=== PATIENT | male | born 1940 | race Caucasian/White ===

== ENCOUNTER 2019-03-27 15:45 | Inpatient (IN) ==
[2019-03-27 16:20] LABS: Basophils # (auto) 0.02 K/uL (0-0.2); Basophils % (auto) 0.2 %; Eosinophils # (auto) 0.23 K/uL (0-0.5); Eosinophils % (auto) 1.9 %; Hematocrit (blood only) 37.2 % (42-52); Hemoglobin 11.9 g/dL (14.0-18.0); Immature Granulocytes # (auto) 0.03 K/uL (0.00-0.02); Immature Granulocytes % (auto) 0.3 %; Lymphocytes # (auto) 2.07 K/uL (1.2-3.4); Lymphocytes % (auto) 17.3 %; Mean Corpuscular Hemoglobin 28.1 pg (25-34); Mean Corpuscular Volume 87.9 fL (80-100); Mean Platelet Volume 11.3 fL (7.4-10.4); Monocytes # (auto) 0.56 K/uL (0.11-0.59); Monocytes % (auto) 4.7 %; Neutrophils # (auto) 9.03 K/uL (1.4-6.5); Neutrophils % (auto) 75.6 %; Platelet Count 162 K/uL (130-400); RDW Coefficient of Variation 15.4 % (11.5-14.5); RDW Standard Deviation 48.6 fL (36.4-46.3); Red Blood Count 4.23 M/uL (4.7-6.1); White Blood Count 11.94 K/uL (4.8-10.8)
[2019-03-27 16:29] LABS: INR 1.6 (0.9-1.1); Prothrombin Time 16.2 Seconds (9.0-12.0)
[2019-03-27 16:38] LABS: Albumin Level 3.3 gm/dl (3.4-5.0); BUN Creatinine Ratio 32.6 (10-20); Calcium 9.1 mg/dl (8.5-10.1); Creatinine Clr Calc Pharmacy 23.9 ml/min; Est GFR (African American) 32.5; Magnesium 2.6 mg/dl (1.8-2.4); Potassium 4.8 mmol/L (3.5-5.1)
--- NOTE | 2019-03-27 16:42 | XRay Report ---
XR chest 1V portable CLINICAL HISTORY: 78 years-old Male presenting with weakness. TECHNIQUE: Portable upright AP view of the chest was obtained. COMPARISON: None. FINDINGS: Atherosclerosis of the aortic arch. Cardiac silhouette borderline enlarged. Mildly coarsened lung [place] may relate to mild vascular prominence No focal opacity. No large effusion or pneumothorax. Oss eous structures normal. Upper abdomen normal. IMPRESSION: 1. No acute cardiopulmonary disease. Electronically signed by: Keith Antunez M.D. 03/27/2019 4:41 PM
[2019-03-27] MEDS ORDERED: FUROSEMIDE 40 MG/4 ML VIAL IV STA (16:47)
--- NOTE | 2019-03-27 16:53 | CT Scan Report ---
CT head/brain wo con CLINICAL HISTORY: 78 years-old Male presenting with confusion. TECHNIQUE: Multidetector CT imaging of the head was performed without the use of intravenous contrast . IV contrast: None. One or more dose lowering techniques were used consistent with the principles of ALARA (as low as reasonably achievable), including automatic exposure control, mA or kV adjustment t o individual patient size, and/or use of iterative reconstruction. COMPARISON: None. CT DOSE (mGy.cm): The estimated cumulative dose is 614.27 mGy.cm. FINDINGS: Perforator Typist topogram: The patient is edentulous. Proportional ventricular and sulcal prominence, somewhat advanced age-related parenchymal volume loss . No hemorrhage. Brain parenchyma normal in appearance with preserved mcfarland-white differentiation. No acute territorial infarct. No mass effect or midline shift. No extra-axial fluid collection. Paranasa l sinuses and mastoid air cells clear. Calvarium intact. Absent [place] lenses. IMPRESSION: 1. No acute intracranial abnormality. Somewhat advanced parenchymal atrophy for the patient's age. Electronically signed by: Keith Antunez M.D. 03/27/2019 4:52 PM
--- NOTE | 2019-03-27 16:57 | Emergency Department Note ---
Entered by Deisy Kelly acting as a scribe for Ebenezer Diggs MD History of Present Illness General Chief complaint: Illness Stated complaint: DYSPNEA, HR 140 YESTERDAY, LETHARGIC Time Seen by Provider: 03/27/19 16:00 Source: patient and family History of Present Illness Onset (ago): week(s) 1 Location: left (lung) and right (lung) Severity: similar to prior episodes Pain Consistency: + other (worsening) Maximum Pain Intensity: 0 Quality: + other (shortness of breath) Associated symptoms: + shortness of breath and + other (Positive tachycardia. Negative abdominal pain.); no chest pain, no cough, no fever/chills and no nausea/vomiting Treatments prior to arrival: none The patient is a 78 year old male with a past medial history of LBBB who presents to the Emergency Department complaining of worsening shortness of breath starting 1 week ago. The patients ex- reports that the patient is short of breath. She states that the patient is confused and that this is not normal for him. She explains that the patient has been retaining fluid and that this stomach looks larger than normal. She notes that the patient is not compliant with his medications. She adds that the patient is tachycardic. The patients reports that she called EMS 1 day for these same symptoms that the patient is experiencing but that he refused to come to the hospital. She states that the patient saw Dr. Allen Rivero Continuous Yarn Dyeing Machine Operator 2 weeks ago. She notes that the patient had an EKG at that time that was normal when compared to an EKG from 2017. She adds that the patient has experienced these symptoms before. The patient reports that he is short of breath. He states that he doesnt know what medications he takes. He explains that his last bowel movement was this morning and that it was normal. He notes that he does not want to be in the hospital and is not willing to be potentially admitted as an inpatient. 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 He denies chest pain, nausea, vomiting, fevers, chills, cough and abdominal pain. Home Medications Home Medications Medication Instructions Recorded Confirmed Type albuterol sulfate [Ventolin HFA] 2 puff INHALATION Q6H PRN 03/27/19 03/27/19 His tory cyanocobalamin (vitamin B-12) 1,000 mcg PO DAILY 03/27/19 03/27/19 History [Vitamin B-12] lisinopril 5 mg PO DAILY 03/27/19 03/27/19 History lutein 20 mg PO DAILY 03/27/19 03/27/19 History metformin 500 mg PO TID 03/27/19 03/27/19 History saw palmetto fruit 450 mg PO UD 03/27/19 03/27/19 History Allergies Allergy/AdvReac Type Severity Reaction Status Date / Time No Known Allergies Allergy Unverified 03/27/19 16:52 Past Med/Surg History Medical History (Updated 03/28/19 @ 15:28 by Maegan Downey DO) History of left bundle branch block (LBBB) Non-insulin dependent type 2 diabetes mellitus Surgical History Surgical history unknown Social History Preferred Language: Omani Communication Ability: Impaired Beliefs That Will Affect Care: None Current Living Situation: Significant Other Other Information That Helps Us Care for You: No Feels Safe at Home: Yes Safety Concerns: Feels Safe At This Time Smoking Status: Former smoker Hx Alcohol Use: No Hx Substance Use: No Review of Systems See HPI for pertinent positives & negatives. and A total of 10 systems reviewed and were otherwise negative Physical Exam Vital Signs Vital Signs - 24 hr 03/27/19 15:50 03/27/19 16:04 03/27/19 16:10 Temperature 37 C Temperature Source Oral Sepsis Recent Fever Within 48 Hours No Sepsis New/Unexplained Change in Mental Status No Sepsis Action Taken by Nursing No Action Required Pulse Rate 137 H 150 H 126 H Pulse Rate from SpO2 Sensor 133 H 130 H Respiratory Rate 20 22 19 Respiratory Effort / Characteristics SOB on Exertion Blood Pressure 101/69 112/78 Blood Pressure Mean 79 89 Blood Pressure Position Sitting Pulse Oximetry 99 99 99 Oxygen Delivery Method Room Air 03/27/19 16:11 03/27/19 16:20 03/27/19 16:30 Temperature Temperature Source Sepsis Recent Fever Within 48 Hours Sepsis New/Unexplained Change in Mental Status Sepsis Action Taken by Nursing Pulse Rate 137 H 127 H Pulse Rate from SpO2 Sensor 137 H 131 H Respiratory Rate 18 18 Respiratory Effort / Characteristics Blood Pressure Blood Pressure Mean Blood Pressure Position Pulse Oximetry 99 98 98 Oxygen Delivery Method Room Air 03/27/19 16:48 03/27/19 16:50 03/27/19 17:00 Temperature Temperature Source Sepsis Recent Fever Within 48 Hours Sepsis New/Unexplained Change in Mental Status Sepsis Action Taken by Nursing Pulse Rate 134 H 138 H 138 H Pulse Rate from SpO2 Sensor Respiratory Rate 21 17 20 Respiratory Effort / Characteristics Blood Pressure Blood Pressure Mean Blood Pressure Position Pulse Oximetry Oxygen Delivery Method 03/27/19 17:10 03/27/19 17:17 03/27/19 17:20 Temperature Temperature Source Sepsis Recent Fever Within 48 Hours Sepsis New/Unexplained Change in Mental Status Sepsis Action Taken by Nursing Pulse Rate 138 H 138 H 139 H Pulse Rate from SpO2 Sensor 138 H 138 H Respiratory Rate 17 20 21 Respiratory Effort / Characteristics Blood Pressure 112/96 Blood Pressure Mean 101 Blood Pressure Position Pulse Oximetry 100 100 Oxygen Delivery Method GENERAL: Well appearing, well nourished, NAD, non-toxic. Patient is wearing glasses. EYE EXAM: Normal conjunctiva. PERRL, no anisocoria and EOM's grossly intact w/o pain. OROPHARYNX: Moist mucus membranes. Grossly normal dentition. NECK: Supple, no nuchal rigidity, no adenopathy, non-tender. No signs of meningismus. LUNGS: Bibasilar crackles. Clear to auscultation. Normal chest wall mechanics. HEART: NSR, no MRG. ABDOMEN: Abdomen soft, non-tender, normo-active bowel sounds, no masses, no rebound or guarding. BACK: No CVA TTP. SKIN: No rashes and no bruising. UPPER EXTREMITIES: Upper extremities are grossly normal. LOWER EXTREMITIES: 4+ pitting edema. No erythema or calf pain. NEURO EXAM: GCS 14. Intermittently confused. Follows commands. Procedures Free Text Procedures Limited Point of Care Cardiac Ultrasound performed by me: Indication: Tachycardia, volume overload, SOB Findings: Limited echocardiography revealed no obvious pericardial fluid. Wall motion appeared decreased. HR 130s. Additional findings: Increased EPSS, IVC plethoric and 2 cm, decreased EF, no obvious septal bowing Impression: Decreased EF, increased EPSS and IVC Course 1604: The patient was evaluated in room C5, and a complete history and physical examination were performed. 1616: I spoke with the ED community youth secretary at this time about getting the patients medical records. 1630: I performed a bedside US on the patient at this time. The patients family reported that the patient is not currently at his mental baseline and doesnt believe he can make safe decisions for himself. They state that they want the patient to stay in the hospital. 1702: I updated the patient and his family at this time. I paged the hospit alist. I discussed the patient's case with [place] Shayan Oseguera [facility] [place]. She will evaluate the patient for further management. Administered Medications Cyanocobalamin (Vitamin B-12) 1,000 mcg PO DAILY ELIZABETH Stop: 04/27/19 08:59 Last Admin: 03/29/19 08:54 Dose: 1,000 mcg Documented by: [id number] Admin: 03/28/19 07:24 Dose: 1,000 mcg Documented by: [id number] Piperacillin Sod/Tazobactam (Sod 3.375 gm/ Dextrose) 115 mls @ 28.75 mls/hr IV Q8H ELIZABETH; Protocol Stop: 03/30/19 02:59 Last Admin: 03/29/19 10:24 Dose: 28.8 mls/hr Documented by: [id number] Infusion: 03/29/19 06:00 Dose: 0 mls/hr Documented by: [id number] Admin: 03/29/19 01:54 Dose: 28.8 mls/hr Documented by: [id number] Infusion: 03/29/19 00:15 Dose: 0 mls/hr Documented by: [id number] Admin: 03/28/19 20:47 Dose: 28.8 mls/hr Documented by: [id number] Infusion: 03/28/19 13:41 Dose: 0 mls/hr Documented by: [id number] Admin: 03/28/19 11:47 Dose: 115 mls/hr Documented by: [id number] Infusion: 03/28/19 07:54 Dose: 0 mls/hr Documented by: [id number] Admin: 03/28/19 03:36 Dose: 28.8 mls/hr Documented by: [id number] Sodium Bicarbonate 100 meq/ (Dextrose) 1,100 mls @ 80 mls/hr IV .[id number] ELIZABETH Stop: 04/28/19 05:59 Last Admin: 03/29/19 08:55 Dose: 80 mls/hr Documented by: [id number] Infusion: 03/29/19 08:55 Dose: 80 mls/hr Documented by: [id number] Admin: 03/29/19 06:34 Dose: 80 mls/hr Documented by: [id number] Insulin Aspart (Novolog Flexpen) 0 units SC ACHS ELIZABETH Stop: 04/26/19 20:59 Last Admin: 03/29/19 11:57 Dose: 1 units Documented by: [id number] Cosigned by: [id number] Admin: 03/29/19 08:54 Dose: Not Given Documented by: [id number] Cosigned by: [id number] Admin: 03/28/19 21:31 Dose: Not Given Documented by: [id number] Cosigned by: [id number] Admin: 03/28/19 17:16 Dose: Not Given Documented by: [id number] Cosigned by: [id number] Admin: 03/28/19 13:40 Dose: Not Given Documented by: [id number] Cosigned by: [id number] Admin: 03/28/19 07:53 Dose: Not Given Documented by: [id number] Cosigned by: [id number] Admin: 03/27/19 20:13 Dose: Not Given Documented by: [id number] Cosigned by: [id number] Metoprolol Tartrate (Lopressor) 12.5 mg PO BID ELIZABETH Stop: 04/27/19 08:59 Last Admin: 03/29/19 08:54 Dose: 12.5 mg Documented by: [id number] Admin: 03/28/19 20:52 Dose: Not Given Documented by: [id number] Admin: 03/28/19 09:11 Dose: 12.5 mg Documented by: [id number] Discontinued Medications Aspirin (Aspirin) 324 mg PO NOW STA Stop: 03/27/19 17:04 Last Admin: 03/27/19 17:17 Dose: 324 mg Documented by: [id number] Furosemide (Lasix) 40 mg IV NOW STA Stop: 03/27/19 16:48 Last Admin: 03/27/19 17:17 Dose: 40 mg Documented by: [id number] Sodium Chloride (Nss 1000ml) 250 mls @ 999 mls/hr IV .Q16M ONE Stop: 03/27/19 20:16 Last Infusion: 03/27/19 20:37 Dose: 0 mls/hr Documented by: [id number] Admin: 03/27/19 20:24 Dose: 999 mls/hr Documented by: [id number] Amiodarone HCl/Dextrose (Nexterone / D5w) 150 mg in 100 mls @ 600 mls/hr IV ONE ONE Stop: 03/27/19 20:11 Last Infusion: 03/27/19 21:09 Dose: 0 mls/hr Documented by: [id number] Cosigned by: [id number] Admin: 03/27/19 20:52 Dose: 600 mls/hr Documented by: [id number] Cosigned by: [id number] Sodium Chloride (Nss 1000ml) 250 mls @ 999 mls/hr IV .Q16M ONE Stop: 03/27/19 21:40 Last Infusion: 03/27/19 22:55 Dose: 0 mls/hr Documented by: [id number] Admin: 03/27/19 22:17 Dose: 999 mls/hr Documented by: [id number] Ceftriaxone Sodium 1,000 mg/ (Dextrose) 50 mls @ 100 mls/hr IV Q24H [facility]; Protocol Stop: 04/06/19 22:29 Last Infusion: 03/28/19 01:33 Dose: 0 mls/hr Documented by: [id number] Admin: 03/28/19 00:43 Dose: 100 mls/hr Documented by: [id number] Sodium Chloride (Nss 1000ml) 500 mls @ 999 mls/hr IV .Q31M ONE Stop: 03/27/19 23:05 Last Infusion: 03/28/19 00:29 Dose: 0 mls/hr Documented by: [id number] Admin: 03/27/19 23:21 Dose: 999 mls/hr Documented by: [id number] Furosemide 20 mg/ Albumin (Human) 52 mls @ 54 mls/hr IV ONE ONE Stop: 03/28/19 02:57 Last Infusion: 03/28/19 03:30 Dose: 0 mls/hr Documented by: [id number] Admin: 03/28/19 02:17 Dose: 54 mls/hr Documented by: [id number] Vancomycin HCl 1,250 mg/ (Sodium Chloride) 275 mls @ 125 mls/hr IV NOW ONE; Protocol Stop: 03/28/19 04:11 Last Infusion: 03/28/19 06:05 Dose: 0 mls/hr Documented by: [id number] Admin: 03/28/19 03:36 Dose: 125 mls/hr Documented by: [id number] Sodium Chloride (1/2 Nss) 1,000 mls @ 80 mls/hr IV .[id number] ELIZABETH Stop: 04/27/19 08:44 Last Infusion: 03/29/19 06:14 Dose: 0 mls/hr Documented by: [id number] Admin: 03/29/19 00:16 Dose: 80 mls/hr Documented by: [id number] Infusion: 03/29/19 00:15 Dose: 0 mls/hr Documented by: [id number] Admin: 03/28/19 09:11 Dose: 80 mls/hr Documented by: [id number] Iothalamate Meglumine (Cysto-Conray Ii) Confirm Administered Dose 250 ml .ROUTE .STK-MED ONE Stop: 03/28/19 11:48 Last Admin: 03/28/19 12:23 Dose: 60 ml Documented by: [id number] Metoprolol Tartrate (Lopressor) 5 mg IV NOW STA Stop: 03/27/19 18:30 Last Admin: 03/27/19 18:54 Dose: 5 mg Documented by: [id number] Medical Decision Making Differential Diagnosis Differential diagnoses includes but is not limited to pneumonia, bronchitis, CO PD/Asthma exacerbation, pneumothorax, pulmonary embolism, congestive heart failure, acute coronary syndrome Medical Records Attestation: I reviewed the patient's medical records. Home Medications Current Medication List: was personally reviewed by me Laboratory Data Attestation: I reviewed the patient's lab results. Result diagrams: 03/29/19 05:43 03/29/19 05:43 Lab Results 03/27/19 03/27/19 03/27/19 Range/Units 00:02 16:08 16:08 WBC 11.94 H (4.8-10.8) K/uL RBC 4.23 L (4.7-6.1) M/uL Hgb 11.9 L (14.0-18.0) g/dL Hct 37.2 L (42-52) % MCV 87.9 (80-100) fL MCH 28.1 (25-34) pg MCHC 32.0 (32-36) g/dL RDW Std Deviation 48.6 H (36.4-46.3) fL RDW Coeff of George 15.4 H (11.5-14.5) % Plt Count 162 (130-400) K/uL MPV 11.3 H (7.4-10.4) fL Immature Gran % (Auto) 0.3 % Neut % (Auto) 75.6 % Lymph % (Auto) 17.3 % [place] % (Auto) 4.7 % Eos % (Auto) 1.9 % Baso % (Auto) 0.2 % Immature Gran # (Auto) 0.03 H (0.00-0.02) K/uL Neut # (Auto) 9.03 H (1.4-6.5) K/uL Lymph # (Auto) 2.07 (1.2-3.4) K/uL [place] # (Auto) 0.56 (0.11-0.59) K/uL Eos # (Auto) 0.23 (0-0.5) K/uL Baso # (Auto) 0.02 (0-0.2) K/uL PT 16.2 H (9.0-12.0) Seconds INR 1.6 H (0.9-1.1) Sodium (136-145) mmol/L Potassium (3.5-5.1) mmol/L Chloride (98-107) mmol/L Carbon Dioxide (21-32) mmol/L Anion Gap (3-11) BUN (7-18) mg/dl Creatinine (0.6-1.4) mg/dl Est Cr Clr Drug Dosing ml/min Est GFR ( Amer) Est GFR (Non-Af Amer) BUN/Creatinine Ratio (10-20) Glucose (70-99) mg/dl Lactate (0.4-2.0) mmol/L Calcium (8.5-10.1) mg/dl Phosphorus (2.5-4.9) mg/dl Magnesium (1.8-2.4) mg/dl Total Bilirubin (0.2-1) mg/dl AST (15-37) U/L ALT (12-78) U/L Alkaline Phosphatase (45-117) U/L Troponin I (0-0.045) ng/ml Total Protein (6.4-8.2) gm/dl Albumin (3.4-5.0) gm/dl Globulin (2.5-4.0) gm/dl Albumin/Globulin Ratio (0.9-2) TSH (0.300-4.500) uIu/ml Free T4 (0.8-1.6) ng/dl Urine Color Yellow Urine Appearance Turbid A (Clear) Urine pH 5.0 (4.5-7.5) Ur Specific [place] 1.020 (1.000-1.030) Urine Protein Trace H (Negative) Urine Glucose (UA) Negative (Negative) Urine Ketones Negative (Negative) Urine Blood 3+ H (Negative) Urine Nitrite Negative (Negative) Urine Bilirubin Negative (Negative) Urine Urobilinogen Negative (Negative) Ur Leukocyte Esterase 2+ H (Negative) Urine WBC (Auto) >30 H (0-5) /hpf Urine RBC (Auto) >30 H (0-4) /hpf U Hyaline Cast (Auto) 1-5 (0-5) /lpf U Epithel Cells (Auto) 0-5 (0-5) /lpf Urine Bacteria (Auto) Negative (Negative) Urine Crystals Hippuric Acid A (None Prsent) 03/27/19 03/27/19 Range/Units 16:08 16:57 WBC (4.8-10.8) K/uL RBC (4.7-6.1) M/uL Hgb (14.0-18.0) g/dL Hct (42-52) % MCV (80-100) fL MCH (25-34) pg MCHC (32-36) g/dL RDW Std Deviation (36.4-46.3) fL RDW Coeff of George (11.5-14.5) % Plt Count (130-400) K/uL MPV (7.4-10.4) fL Immature Gran % (Auto) % Neut % (Auto) % Lymph % (Auto) % [place] % (Auto) % Eos % (Auto) % Baso % (Auto) % Immature Gran # (Auto) (0.00-0.02) K/uL Neut # (Auto) (1.4-6.5) K/uL Lymph # (Auto) (1.2-3.4) K/uL [place] # (Auto) (0.11-0.59) K/uL Eos # (Auto) (0-0.5) K/uL Baso # (Auto) (0-0.2) K/uL PT (9.0-12.0) Seconds INR (0.9-1.1) Sodium 146 H (136-145) mmol/L Potassium 4.8 (3.5-5.1) mmol/L Chloride 114 H (98-107) mmol/L Carbon Dioxide 20 L (21-32) mmol/L Anion Gap 12.0 H (3-11) BUN 71 H (7-18) mg/dl Creatinine 2.19 H (0.6-1.4) mg/dl Est Cr Clr Drug Dosing 23.9 ml/min Est GFR ( Amer) 32.5 Est GFR (Non-Af Amer) 28.0 BUN/Creatinine Ratio 32.6 H (10-20) Glucose 140 H (70-99) mg/dl Lactate 2.7 H* (0.4-2.0) mmol/L Calcium 9.1 (8.5-10.1) mg/dl Phosphorus 4.5 (2.5-4.9) mg/dl Magnesium 2.6 H (1.8-2.4) mg/dl Total Bilirubin 1.3 H (0.2-1) mg/dl AST 56 H (15-37) U/L ALT 115 H (12-78) U/L Alkaline Phosphatase 175 H (45-117) U/L Troponin I 0.270 H* (0-0.045) ng/ml Total Protein 7.3 (6.4-8.2) gm/dl Albumin 3.3 L (3.4-5.0) gm/dl Globulin 4.0 (2.5-4.0) gm/dl Albumin/Globulin Ratio 0.8 L (0.9-2) TSH 5.260 H (0.300-4.500) uIu/ml Free T4 1.04 (0.8-1.6) ng/dl Urine Color Urine Appearance (Clear) Urine pH (4.5-7.5) Ur Specific [place] (1.000-1.030) Urine Protein (Negative) Urine Glucose (UA) (Negative) Urine Ketones (Negative) Urine Blood (Negative) Urine Nitrite (Negative) Urine Bilirubin (Negative) Urine Urobilinogen (Negative) Ur Leukocyte Esterase (Negative) Urine WBC (Auto) (0-5) /hpf Urine RBC (Auto) (0-4) /hpf U Hyaline Cast (Auto) (0-5) /lpf U Epithel Cells (Auto) (0-5) /lpf Urine Bacteria (Auto) (Negative) Urine Crystals (None Prsent) Imaging Data Radiologist's Impression: Radiology results as stated below per my review and the radiologist's interpretation: CT head/brain wo con CLINICAL HISTORY: 78 years-old Male presenting with confusion. TECHNIQUE: Multidetector CT imaging of the head was performed without the use of intravenous contrast. IV contrast: None. One or more dose lowering techniques were used consistent with the principles of ALARA (as low as reasonably achievable), including automatic exposure control, mA or kV adjustment to individual patient size, and/or use of iterative reconstruction. COMPARISON: None. CT DOSE (mGy.cm): The estimated cumulative dose is 614.27 mGy.cm. FINDINGS: Chamber Worker topogram: The patient is edentulous. Proportional ventricular and sulcal prominence, somewhat advanced age-related parenchymal volume loss. No hemorrhage. Brain parenchyma normal in appearance with preserved mcfarland-white differentiation. No acute territorial infarct. No mass effect or midline shift. No extra-axial fluid collection. Paranasal sinuses and mastoid air cells clear. Calvarium intact. Absent [place] lenses. IMPRESSION: 1. No acute intracranial abnormality. Somewhat advanced parenchymal atrophy for the patient's age. Electronically signed by: Keith Antunez M.D. 03/27/2019 4:52 PM XR chest 1V portable CLINICAL HISTORY: 78 years-old Male presenting with weakness. TECHNIQUE: Portable upright AP view of the chest was obtained. COMPARISON: None. FINDINGS: Atherosclerosis of the aortic arch. Cardiac silhouette borderline enlarged. Mildly coarsened lung [place] may relate to mild vascular prominence No focal opacity. No large effusion or pneumothorax. Osseous structures normal. Upper abdomen normal. IMPRESSION: 1. No acute cardiopulmonary disease. Electronically signed by: Keith Antunez M.D. 03/27/2019 4:41 PM ECG Data Attestation: I personally reviewed and interpreted this ECG as follows: Indication: + SOB/dyspnea and + tachycardia Rate (beats per minute): 136 Rhythm: + other (wide complex tachycardia) ECG Intervals/blocks: + Left bundle branch block; no Normal QRS (Wide QRS.) ECG Findings: + Q waves (Q waves throughout. ) and + Other ([place] negative. ) Blood Pressure Blood Pressure Findings: Normal blood pressure Blood Pressure Disposition: further management by hospitalist ROBINA Narrative The patient is a 78 year old male with a past medial history of LBBB who presents to the Emergency Department complaining of worsening shortness of breath starting 1 week ago. Patient was seen and evaluated the bedside. The patient does present tachycardic. The patient's family does relate that the patient has had some slight confusion urinary incontinence. The patient has a GCS of 14 opens eyes to voice and does follow basic eyes in all 4 extremities and is able to tell me who is in the room. The patient did a blood work completed along with blood and urine cultures and lactate. Lactate is slightly elevated. The patient is tachycardic. I did perform a limited [id number] bedside ultrasound which did not show any obvious pericardial effusion but I believe that the patient does have a decreased EF and systolic function. The patient was given Lasix. Patient does have positive troponin. The ex- was able to relate the patient does have prior history of left bundle branch block. The patient does still have a left bundle but without any obvious ischemic change. Negative for Sgar[place]ossa. Patient was given a full dose aspirin. Given the limited [id number] ultrasound I do not notice any obvious septal bowing given the patient's heart rate and the fact that the pressures are stable and the patient is not hypoxic or tachypneic I believe PE to be less likely. I did speak with t benito on-call hospitalist who agreed to evaluate the patient. Patient was subsequent Usama admitted to the medicine service. Impression & Plan CHF (congestive heart failure), DAKOTA (acute kidney injury), Anemia, Transaminitis Discharge Plan Visit Data *Final* Discharge Date/Time: 03/27/19 19:20 Chief Complaint: Illness Stated Complaint: DYSPNEA, HR 140 YESTERDAY, LETHARGIC ED Provider: Ebenezer Diggs Discharge Problem: CHF (congestive heart failure), DAKOTA (acute kidney injury), Anemia, Transaminitis Patient Disposition: Admitted As Inpatient Discharge Instructions Interventions: ED Discharge Assessment Last Done: 03/27/19 19:20 Discharge Problem: CHF (congestive heart failure) Qualifiers: Heart failure type: systolic Heart failure chronicity: acute Qualified Code(s): I50.21 - Acute systolic (congestive) heart failure Anemia Qualifiers: Anemia type: unspecified type Qualified Code(s): D64.9 - Anemia, unspecified The scribe's documentation has been prepared under my direction and personally reviewed by me in its entirety. I confirm that the note above accurately reflects all work, treatment, procedures, and medical decision making performed by me.
[2019-03-27 17:03] LABS: Albumin Globulin Ratio 0.8 (0.9-2); Bilirubin,Total 1.3 mg/dl (0.2-1); Phosphorus 4.5 mg/dl (2.5-4.9); Thyroid Stimulating Hormone 5.26 uIu/ml (0.300-4.500); Total Protein 7.3 gm/dl (6.4-8.2); Troponin I 0.27 ng/ml (0-0.045)
[2019-03-27] MEDS ORDERED: ASPIRIN CHEW 324 MG PO STA (17:03)
--- NOTE | 2019-03-27 17:23 | History & Physical Report ---
Date of Service March 27, 2019 Assessment & Plan (1) CHF (congestive heart failure): -Admit to [facility] with telemetry -Likely chronic systolic chf -Significant hypervolemia on exam. Continue IV diuresis, received Lasix 40 mg IV so far, patient is incontinent of urine so will place Garcia for strict I's/O's, daily weights, fluid restriction of 1500 mL -CXR reviewed, consider repeat in a.m. -2D echo ordered, cannot find another from outside records as all offices are close. Attempt to obtain per day team. -Troponin elevated at 0.270, trend x2 more sets, patient denies any cardiac sx. -Cardiology consulted, does not have a manager maintenance as outpatient, has previously refused to see cardiology service. Will also consult CHF clinic consultation (2) Tachycardia: - HR in 130s, will order dose of IV lopressor 5 mg now, and make available as needed, is not on BB at baseline, consider PO low dose metoprolol tartrate tonight pending response to IV. (3) Benign essential HTN: - Cont lisinopril - Cardiology consulted - NOT on BB, use Lopressor IV 5 mg PRN for HR > 100. Hold for SBP <100 or DBP< 70 (4) History of left bundle branch block (LBBB): -History of such per and records, no previous EKG to for me to review, attempt to retrieve from PCP per day team, noted on EKG in the ER (5) Altered mental status: -Increased confusion over the past week, unknown source -WBC= 14.7, lactic acid initially elevated at 2.7, repeat at 19:10, no IVF due to significant volume overload as above -Await UA and U CX with sensitivities- reporting darkened/cloudy urine, possible source of infection with patient history of enlarged prostate, Garcia ordered (6) DAKOTA (acute kidney injury): -Creatinine elevated at 2.19, BUN = 71, no baseline, creatinine likely to improve with diuresis due to significant volume overload -Follow with a.m. labs (7) Transaminitis: - AST = 56, ALT = 115, alk phos = 175 - No baseline LFTs available for review, trend with a.m. labs to ensure improvement (8) Anemia: -Hemoglobin 11.9, HCT = 37.2, trend with a.m. labs, no acute signs of bleed, platelets stable, not on anticoagulation (9) Elevated TSH: -TSH = 5.260, free T4 pending, possible hypothyroidism which has not been diagnosed, will follow (10) Enlarged prostate: -This is been reported by the as patient was supposed to have biopsy completed several years ago due to an elevated PSA, patient refused. Consider recheck PSA during this admission. -Garcia to be inserted -consider urology consultation (11) DVT prophylaxis: -Heparin subcu, SCDs CODE STATUS: DNR Disposition: From home, lives with ex-, likely to remain in the hospital x2 days. History of Present Illness Primary Care Provider: Timothy Villa This is a 78 yo M with PMHx of CHF, afib not on anticoagulation, HTN, DM II, elevated PSA and enlarged prostate, who presents with worsening bilateral lower extremity edema and shortness of breath, and increased confusion over the past week. The patient's ex-, Joselito, and son, Javi, are present at bedside and supply the history as the patient states "I am fine, there is nothing wrong with me". The patient has been brought here essentially against his will, and that he previously refused to be admitted to the hospital. His symptoms started approximately 5 weeks ago when ex- noticed that he was becoming progressively short of breath. He finally was taken into his PCPs office after many arguments on 03/15/2019. PCP performed a bedside ultrasound due to significant 3+ pitting edema in BLE, and found that he was in CHF, as well as found to be in A. fib with elevated heart rate, and was told to go to the ER, however pt refused. He was given a prescription for Lasix 20 mg QAM, and took Lasix at home for about 1 week then stopped because he did not like the frequent urination. He has been able to sleep while lying flat, no orthopnea, but has been extremely fatigued. They also note that he has become increasingly confused. For example, he has not been able to say what he wants to and is not all the time making sense, they say that occasionally he slurs his speech but this is worsened whenever he does not have his teeth in place, they deny focal weakness. Of note, patient's urine has become dark over the last week and slightly cloudy. He has not yet provided urine sample for UA. He has been given Lasix 40 mg IV in the ER. Patient does not want to be admitted, however he agreeable as his ex- has promised to get him a puppy, which is very cute and only 1-month-old. Allergies Allergy/AdvReac Type Severity Reaction Status Date / Time No Known Allergies Allergy Unverified 03/27/19 16:52 Home Medications Home Medications Medication Instructions Recorded Confirmed Type albuterol sulfate [Ventolin HFA] 2 puff INHALATION Q6H PRN 03/27/19 03/27/19 History cyanocobalamin (vitamin B-12) 1,000 mcg PO DAILY 03/27/19 03/27/19 History [Vitamin B-12] lisinopril 5 mg PO DAILY 03/27/19 03/27/19 History lutein 20 mg PO DAILY 03/27/19 03/27/19 History metformin 500 mg PO TID 03/27/19 03/27/19 History saw palmetto fruit 450 mg PO UD 03/27/19 03/27/19 History Past Med/Surg History Medical History History of left bundle branch block (LBBB) Surgical History Surgical history unknown Social History Preferred Language: Faroese Communication Ability: Effective Beliefs That Will Affect Care: None Current Living Situation: Significant Other Other Information That Helps Us Care for You: No Feels Safe at Home: Yes Safety Concerns: Feels Safe At This Time Smoking Status: Former smoker Hx Alcohol Use: No Hx Substance Use: No Review of Systems Review of Systems: Constitutional: No fever, sweats or chills Eyes: No diplopia, no worsening or blurred vision ENT: normal hearing, no trouble swallowing Respiratory: No cough, sputum, dyspnea at rest or on exertion Cardiovascular: No chest pain, tightness or palpitations Abdomen: No pain, nausea, vomiting, diarrhea or constipation Musculoskeletal: No joint pain, calf pain, swelling Neurologic: No weakness, numbness/tingling, or balance problems Psychiatric: No anxiety or depression Skin: No rash or itch Patient denies all ROS. Ex- notes that he has had increased shortness of breath and swelling as per HPI. Physical Exam Physical Exam: General: awake, alert, no apparent distress, lying flat Head: Normocephalic, atraumatic ENT: PERRL, EOMI, no pharyngeal exudate, mucous membranes moist Chest: Diminished breath sounds at bases, + crackles bilateral bases, on room air Cardiac: Sinus tach, heart rate in 130s, no murmur, no JVD, normal peripheral pulses, good capillary refill Abdominal: NABS x 4 quadrants, soft, + distended, nontender to palpation, no rebound, guarding or tenderness Extremities: Normal inspection, 3+ peripheral edema into thighs bilaterally, no erythema, calfs nontender to palpation Psych: Irritable mood and flat affect Neuro: AAO x 3, no gross motor deficits, speech is clear, no peripheral sensory deficits Constitutional: WD/WN, vitals as above Eyes: normal visual tobin by confrontation and + anicteric sclerae Neck: normal visual inspection and trachea midline Respiratory: normal respiratory effort; no respiratory distress Auscultation: + crackles; no wheezes Cardiovascular: Rate/Rhythm: regular rhythm and + tachycardic Gastrointestinal (Abdomen): Inspection/Auscultation: + abdomen distended Percussion/Palpation: abdomen soft; abdomen nontender Musculoskeletal: Head/Neck/Chest: normocephalic and head atraumatic b/l 3+ pitting LE edema to thighs, + pedal pulses Skin: no rashes, warm and dry Neurologic: awake; not confused Speech / Cognition: normal speech Psychiatric: Orientation: oriented x 3; + uncooperative Affect: + irritable affect Lymphatic: Exam as done by Maegan Downey DO Results & Data Vital Signs (Past 12 Hours) Vital Signs Temp Pulse Resp BP Pulse Ox 03/27/19 16:11 99 03/27/19 15:50 37 C 137 H 20 101/69 99 Diagnostic Findings XR chest 1V portable CLINICAL HISTORY: 78 years-old Male presenting with weakness. TECHNIQUE: Portable upright AP view of the chest was obtained. COMPARISON: None. FINDINGS: Atherosclerosis of the aortic arch. Cardiac silhouette borderline enlarged. Mildly coarsened lung markings may relate to mild vascular prominence No focal opacity. No large effusion or pneumothorax. Osseous structures normal. Upper abdomen normal. IMPRESSION: 1. No acute cardiopulmonary disease. CT head/brain wo con CLINICAL HISTORY: 78 years-old Male presenting with confusion. TECHNIQUE: Multidetector CT imaging of the head was performed without the use of intravenous contrast. IV contrast: None. One or more dose lowering techniques were used consistent with the principles of ALARA (as low as reasonably achievable), including automatic exposure control, mA or kV adjustment to individual patient size, and/or use of iterative reconstruction. COMPARISON: None. CT DOSE (mGy.cm): The estimated cumulative dose is 614.27 mGy.cm. FINDINGS: Plumber Gasfitter topogram: The patient is edentulous. Proportional ventricular and sulcal prominence, somewhat advanced age-related parenchymal volume loss. No hemorrhage. Brain parenchyma normal in appearance with preserved mcfarland-white differentiation. No acute territorial infarct. No mass effect or midline shift. No extra-axial fluid collection. Paranasal sinuses and mastoid air cells clear. Calvarium intact. Absent qagan tayagungin lenses. IMPRESSION: 1. No acute intracranial abnormality. Somewhat advanced parenchymal atrophy for the patient's age. Code Status & VTE Plan Code Status DNR - discussed with pt and family at bedside Supervising Physician Co-Signing Physician Notes Pt seen and examined by me. Denies chest pain or SOB, denies increased LE swell ing. Family states pt has been having SOB over the last 5 weeks, but much worse this week with increased LE swelling. They state he has been confused and not taking his medications as he usually would. Pt has been advised to seek hospital based care at least twice over the last week, however he has refused until today when he went to see a puppy that he was thinking about adopting. His ex- t old him he could not get a puppy unless he came to the hospital "because I can't take care of a puppy on my own". Agree with HPI/ROS as noted by PA See above for my exam in PE section Agree with plan as outlined above CHF exacerbation, pt has been noncompliant with medication recently which is the likely cause Unable to place garcia Uncertain etiology of confusion, awaiting UA CT head neg for acute Possibly dementia given atrophy noted Trop elevated, likely demand ischemia PG Care Time/CCT Total # of Minutes Spent Total Time Spent with Patient: Total time spent is greater than 50% in coordination of care (as documented) at patient's floor/unit and/or counseling patient: (1) CHF (congestive heart failure) Heart failure chronicity: acute Heart failure type: systolic Qualified Code(s): I50.21 - Acute systolic (congestive) heart failure (2) Anemia Anemia type: unspecified type Qualified Code(s): D64.9 - Anemia, unspecified
[2019-03-27 17:25] LABS: T4 Free Thyroxine 1.04 ng/dl (0.8-1.6)
[2019-03-27] MEDS ORDERED: ONDANSETRON INJ 2 MG/ML 2 ML VIAL IV PRN (17:55)
[2019-03-27] MEDS ORDERED: GLUCAGON FOR INJ 1 MG VIAL SQ PRN (17:55)
[2019-03-27] MEDS ORDERED: GLUCOSE 10 TABS/TUBE PO PRN (17:55)
[2019-03-27] MEDS ORDERED: DEXTROSE 50% 50 ML SYRINGE IV PRN (17:55)
[2019-03-27] MEDS ORDERED: CARBOHYDRATES FOR HYPOGLYCEMIA PO PRN (17:55)
[2019-03-27] MEDS ORDERED: GLUCOSE 40% GEL 15 GM TUBE PO PRN (17:55)
[2019-03-27] MEDS ORDERED: ACETAMINOPHEN 325 MG TAB PO PRN (17:55)
[2019-03-27] MEDS ORDERED: METOPROLOL TARTRATE 1 MG/ML VIAL IV STA (18:29)
[2019-03-27] MEDS ORDERED: METOPROLOL TARTRATE 1 MG/ML VIAL IV PRN (19:46)
[2019-03-27] MEDS ORDERED: ALBUTEROL HFA 8 GM INHALER INH PRN (19:46)
[2019-03-27] MEDS ORDERED: SODIUM CHLORIDE 0.9% 1000ML 250 ML IV ONE ×2 (20:01→21:25)
[2019-03-27] MEDS ORDERED: AMIODARONE / D5W 150 MG/100 ML BAG IV ONE (20:02)
[2019-03-27] MEDS: INSULIN ASPART 100 UNITS/ML 3 ML PEN SC SCH (20:13)
[2019-03-27] MEDS ORDERED: cefTRIAXone SODIUM 1,000 MG in DEXTROSE 5% 50 ML IV SCH (22:30)
[2019-03-27] MEDS ORDERED: SODIUM CHLORIDE 0.9% 1000ML 500 ML IV ONE (22:35)
[2019-03-27] MEDS ORDERED: INFLUENZA VACCINE HIGH DOSE 65+ 0.5 ML SYR IM ONE (22:45)
[2019-03-27] MEDS ORDERED: INFLUENZA ADMINISTRATION CHARGE ONE (22:45)
[2019-03-28 00:30] LABS: Appearance Urine Turbid (Clear); Bacteria Urine Automated Negative (Negative); Bilirubin Urine Negative (Negative); Blood Urine 3+ (Negative); Color Urine Yellow; Epithelial Cell Urine Auto 0-5 /lpf (0-5); Glucose Urine UA Negative (Negative); Ketones Urine Negative (Negative); Leukocyte Esterase Urine 2+ (Negative); Nitrite Urine Negative (Negative); Protein Urine Trace (Negative); RBC Urine Automated >30 /hpf (0-4); Urobilinogen Urine Negative (Negative); WBC Urine Automated >30 /hpf (0-5)
[2019-03-28] MEDS ORDERED: VANCOMYCIN CONSULT ACTIVE PRN (01:31)
[2019-03-28] MEDS ORDERED: PIPERACILL/TAZOBAC CONSULT ACTIVE PRN (01:53)
[2019-03-28] MEDS ORDERED: ALBUMIN 25% 50 ML with FUROSEMIDE 20 MG IV ONE (02:00)
[2019-03-28] MEDS ORDERED: VANCOMYCIN HCL 1,250 MG in SODIUM CHLORIDE 0.9% 250 ML IV ONE (02:00)
--- NOTE | 2019-03-28 02:12 | Progress Note ---
Date of Service March 28, 2019 Assessment & Plan (1) Tachycardia: Notified by nursing that patient was hypotensive and tachycardic. EKG was ordered and showed a wide complex tachycardia. BP at this time was 70s/50s. The patient was transferred to telemetry. A 250mL bolus of NSS was ordered, as well as 150mg of IV amiodarone. The patient was frequently reassessed throughout the evening. He expressed no complaints. He generally answers no to every question that is asked of him. His cardiac and lung examinations were otherwise unremarkable and abdominal examination was benign. His BP improved to 90s/50s after several boluses of fluids, totalling 1L. His repeat lactate came back elevated at 7.8. This, in combination with his elevated white cell count, tachycardia and hypotension, was concerning for septic shock. He was started on IV Zosyn and Vancomycin. His UA was positive for WCC and leukocyte esterase, and therefore a urine culture was sent. A CT abdomen and pelvis was also ordered to rule out GI pathology. He was ordered albumin 25% & 20mg of Lasix. We will continue to monitor him closely. Leidy Solorzano, PGY-3 Overnight call resident Results & Data Vital Signs (Past 12 Hours) Vital Signs Temp Pulse Pulse Resp BP BP BP 03/28/19 00:54 120 H 03/28/19 00:41 92/57 L 03/27/19 23:12 117 H 22 77/51 L 03/27/19 20:35 128 H 22 83/58 L 03/27/19 19:58 78/62 L 03/27/19 19:43 122 H 83/52 L 03/27/19 19:33 129 H 16 76/49 L 03/27/19 19:13 94/66 L 03/27/19 19:12 130 H 26 H 03/27/19 19:11 130 H 19 03/27/19 19:10 128 H 18 03/27/19 19:01 133 H 16 03/27/19 19:00 136 H 22 110/72 03/27/19 18:54 136 H 18 114/51 L 03/27/19 18:50 139 H 15 03/27/19 18:40 136 H 23 03/27/19 18:31 118 H 17 03/27/19 18:20 137 H 14 03/27/19 18:10 137 H 19 03/27/19 18:01 136 H 19 03/27/19 18:00 136 H 27 H 106/77 03/27/19 17:54 138 H 16 03/27/19 17:40 136 H 19 03/27/19 17:31 127 H 8 L 03/27/19 17:30 137 H 21 119/85 03/27/19 17:20 139 H 21 03/27/19 17:17 138 H 20 112/96 03/27/19 17:10 138 H 17 03/27/19 17:00 138 H 20 03/27/19 16:50 138 H 17 03/27/19 16:48 134 H 21 03/27/19 16:30 127 H 18 03/27/19 16:20 137 H 18 03/27/19 16:11 03/27/19 16:10 126 H 19 03/27/19 16:04 150 H 22 112/78 03/27/19 15:50 37 C 137 H 20 101/69 Pulse Ox 03/28/19 00:54 03/28/19 00:41 03/27/19 23:12 96 03/27/19 20:35 03/27/19 19:58 03/27/19 19:43 03/27/19 19:33 100 03/27/19 19:13 03/27/19 19:12 03/27/19 19:11 03/27/19 19:10 03/27/19 19:01 03/27/19 19:00 03/27/19 18:54 03/27/19 18:50 03/27/19 18:40 03/27/19 18:31 03/27/19 18:20 03/27/19 18:10 100 03/27/19 18:01 98 03/27/19 18:00 100 03/27/19 17:54 98 03/27/19 17:40 03/27/19 17:31 100 03/27/19 17:30 96 03/27/19 17:20 100 03/27/19 17:17 100 03/27/19 17:10 03/27/19 17:00 03/27/19 16:50 03/27/19 16:48 03/27/19 16:30 98 03/27/19 16:20 98 03/27/19 16:11 99 03/27/19 16:10 99 03/27/19 16:04 99 03/27/19 15:50 99 Resident Activity Tracking Resident 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
[2019-03-28] MEDS: PIPERACILLIN/TAZOBACTAM 3.375 GM in DEXTROSE 5% 100 ML IV SCH ×3 (03:36→20:47)
[2019-03-28 05:51] LABS: Hematocrit (blood only) 35.6 % (42-52); Hemoglobin 11.1 g/dL (14.0-18.0); Mean Corpuscular Hemoglobin 27.7 pg (25-34); Mean Corpuscular Hgb Conc 31.2 g/dL (32-36); Mean Corpuscular Volume 88.8 fL (80-100); Mean Platelet Volume 11.4 fL (7.4-10.4); Nucleated RBC # (auto) 0.04 K/uL (0-0); Nucleated RBC % (auto) 0.2 %; Platelet Count 152 K/uL (130-400); RDW Coefficient of Variation 15.3 % (11.5-14.5); RDW Standard Deviation 49.6 fL (36.4-46.3); Red Blood Count 4.01 M/uL (4.7-6.1)
[2019-03-28 06:35] LABS: BUN Creatinine Ratio 30.9 (10-20); Calcium 8.9 mg/dl (8.5-10.1); Creatinine Clr Calc Pharmacy 19.2 ml/min; Est GFR (African American) 25.7; Est GFR (Non-African American) 22.1; Potassium 5.4 mmol/L (3.5-5.1)
[2019-03-28 06:38] LABS: Albumin Globulin Ratio 0.9 (0.9-2); Bilirubin,Total 1.3 mg/dl (0.2-1); Globulin 3.4 gm/dl (2.5-4.0); Total Protein 6.4 gm/dl (6.4-8.2)
[2019-03-28 06:42] LABS: Bilirubin Direct 0.7 mg/dl (0-0.2); Bilirubin,Total 1.3 mg/dl (0.2-1); Total Protein 6.2 gm/dl (6.4-8.2); Troponin I 0.266 ng/ml (0-0.045)
[2019-03-28] MEDS: CYANOCOBALAMIN 500 MCG TABLET (VITAMIN B-12) PO SCH (07:24)
--- NOTE | 2019-03-28 07:25 | CT Scan Report ---
ABDOMEN AND PELVIS CT WITHOUT CONTRAST CT DOSE: 280.43 mGy.cm HISTORY: Acute sepsis sepsis, r/o abdominal source TECHNIQUE: Multiaxial CT images of the abdomen and pelvis were performed without contrast. A dose lo wering technique was utilized adhering to the principles of ALARA. COMPARISON STUDY: Chest radiograph 03/27/2019 FINDINGS: Small to moderate right pleural effusion. Trace left pleural effusion. Mild subsegmental bibasilar at electasis. There are a few tree-in-bud nodules noted about the anterior right lung base suggestive of a nonspecific bronchiolitis pattern. There is no pneumatosis or pneumoperitoneum. The study is limit ed secondary to motion artifact and lack of contrast. The imaged inferior cardiac chambers are enlarg ed with trace pericardial effusion. There is suggestion of mild marginal nodularity of the liver whic h appears heterogeneous with hepatic steatosis. Equivocal lesion versus artifact measures 1.3 cm with in the inferior right hepatic lobe. Calcified granulomata noted throughout the spleen. Moderate gener alized pancreatic atrophy. Trace perihepatic ascites with diffuse mesenteric and body wall edema. Bilateral perinephric stranding. Probable cyst of the interpolar left kidney laterally, 2.8 cm. There is an additional probable cyst of the superior pole left kidney, 1.1 cm. Additional smaller probable cysts noted bilaterally. Nonobstructing bilateral nephrolithiasis with calculi measuring up to appro ximately 5 mm bilaterally. 6 x 6 x 8 mm obstructing calculus of the left ureter is noted at the level of the inferior endplate L5 demonstrating mild left-sided hydroureteronephrosis there are 4 addition al calcifications of the inferior left hemipelvis measuring up to 1.0 cm suggestive of calculi within the distal left ureter. There are 2 calculi of the inferior right hemipelvis individually measuring 8 approximately 3.5 mm, conglomerate 7 mm on image 351 series 3 is suggestive of distal right uretera l calculus without significant obstructive uropathy. There is mild distal right ureteral dilation. Ca lcified plaque of the abdominal aorta. There are multiple prominent periaortic lymph nodes measuring up to 9 mm in short axis. Enlarged left iliac chain lymph nodes measure up to 1.4 x 1.0 cm. Cancino cat heter is noted within a decompressed urinary bladder. Urinary bladder wall thickening is noted with a ir present within the urinary bladder lumen, likely secondary to instrumentation. Prostamegaly. No bowel obstruction or bowel wall thickening. Appendix not visualized. Degenerative changes of the s pine, pelvis and hips. No suspicious bone lesions. IMPRESSION: 1. Mild left-sided hydroureteronephrosis with at least five calculi noted within the distal left uret er measuring up to 10 mm. 2. There are two subadjacent small calculi of the distal right ureter measuring 3-4 mm. 3. Nonobstructing bilateral nephrolithiasis. 4. Right greater than left bilateral pleural effusions with cardiomegaly and trace pericardial effusi on. 5. Hepatic steatosis with questioned early cirrhotic changes. 6. Trace abdominal pelvic ascites with diffuse body wall edema. 7. Nonspecific prominent para-aortic and enlarged iliac chain lymph nodes. 8. Additional findings as above. Electronically signed by: Rylan Swartz M.D. 03/28/2019 7:24 AM
[2019-03-28 07:45] LABS: Estimated Average Glucose 171 mg/dl; Hemoglobin A1C 7.6 % (4.5-5.6)
[2019-03-28] MEDS: INSULIN ASPART 100 UNITS/ML 3 ML PEN SC SCH ×4 (07:53→21:31)
--- NOTE | 2019-03-28 08:09 | Urology Consultation ---
Date of Consultation March 28, 2019 Assessment & Plan (1) Altered mental status: (2) Bilateral ureteral calculi: 78yo M with Afib with RVR, hypotension, lactic acidosis, confusion, DAKOTA, bilateral distal obstructing stones with mild hydronephrosis. UA suspicious for UTI, +lactic acid. Findings reviewed with Dr. England. Given his progressive kidney failure, early sepsis the context of an obstructing bilateral distal ureteral stones, will proceed with OR for cystoscopy, bilateral retrograde pyelogram and bilateral stent placement. Pt unable to consent due to confusion/cognitive status. Attempted to call ex-, Joselito, listed as primary contact. Left message for her to return call. Pt considered emergent case. Will discuss with hospitalist to ensure clearance for surgery today from cardiac standpoint. OR notified. Preoperative CXR and EKG completed. Pt covered with scheduled IV zosyn. History of Present Illness Reason for Consultation: bilateral obs stones, sepsis Requesting Physician: dr downey Attending Physician: Maegan Downey, History of Present Illness 78yo M admitted through [facility] ER last night from home in [place] for worsening confusion, SOB and bilateral LE swelling. Found to be in afib with RVR, hypotensive. +lactic acid. WBC 17.6, Cr 2.66 this AM, progressing from 2.[address] imaging reveasl bilateral obstructing distal stones, stone burden L>R. Pt is disoriented to place and time, oriented to self. Denies hx of issues, stones. Has a sitter due to repeated IV access pulling. Per notes, pt was very resistant for admission. He states "Do what you have to do" Allergies Allergy/AdvReac Type Severity Reaction Status Date / Time No Known Allergies Allergy Unverified 03/27/19 16:52 Home Medications Home Medications Medication Instructions Recorded Confirmed Type albuterol sulfate [Ventolin HFA] 2 puff INHALATION Q6H PRN 03/27/19 03/27/19 History cyanocobalamin (vitamin B-12) 1,000 mcg PO DAILY 03/27/19 03/27/19 History [Vitamin B-12] lisinopril 5 mg PO DAILY 03/27/19 03/27/19 History lutein 20 mg PO DAILY 03/27/19 03/27/19 History metformin 500 mg PO TID 03/27/19 03/27/19 History saw palmetto fruit 450 mg PO UD 03/27/19 03/27/19 History Patient History Medical History History of left bundle branch block (LBBB) Surgical History Surgical history unknown Social History Preferred Language: [place] Rican Communication Ability: Effective Beliefs That Will Affect Care: None Current Living Situation: Significant Other Other Information That Helps Us Care for You: No Feels Safe at Home: Yes Safety Concerns: Feels Safe At This Time Smoking Status: Former smoker Hx Alcohol Use: No Hx Substance Use: No Review of Systems Review of Systems: All systems reviewed & are unremarkable except as noted in HPI & below Physical Exam Constitutional: + ill appearing, + thin and + frail appearing; no acute distress and + not healthy appearing Eyes: no nystagmus ENMT: Ears: no hearing impairment Neck: trachea midline Respiratory: no respiratory distress and no cough Cardiovascular: Vessels: no JVD Chest (Breasts): Chest: normal inspection of chest Gastrointestinal (Abdomen): Inspection/Auscultation: abdomen not distended and no abdominal edema Percussion/Palpation: abdomen soft; abdomen nontender Musculoskeletal: Head/Neck/Chest: normocephalic and head atraumatic Skin: no rashes, warm and dry Neurologic: awake and + confused; not obtunded Psychiatric: Orientation: alert and oriented x 3 Eye Contact: good eye contact Affect: no depressed affect Genitourinary: no CVA tenderness bladder nontender on palpation garcia draining yellow, cloudy with some hematuria Lymphatic: no lymphadenopathy and no lymphedema Results & Data Vital Signs (Past 12 Hours) Vital Signs Temp Pulse Pulse Resp BP BP Pulse Ox 03/28/19 06:49 36.5 C 128 H 18 96/62 L 100 03/28/19 06:12 36.5 C 128 H 92/60 L 03/28/19 03:09 122 H 22 87/61 L 99 03/28/19 00:54 120 H 03/28/19 00:41 92/57 L 03/27/19 23:12 117 H 22 77/51 L 96 03/27/19 20:35 128 H 22 83/58 L PG Care Time/CCT Total # of Minutes Spent Total Time Spent with Patient: Total time spent is greater than 50% in coordination of care (as documented) at patient's floor/unit and/or counseling patient:
[2019-03-28] MEDS ORDERED: ATROPINE SULFATE 0.1 MG/ML 10ML SYR IV PRN (08:39)
[2019-03-28] MEDS ORDERED: ePHEDrine sulfate 50 MG/ML AMP IV PRN (08:39)
[2019-03-28] MEDS ORDERED: ONDANSETRON INJ 2 MG/ML 2 ML VIAL IV PRN (08:39)
[2019-03-28] MEDS ORDERED: fentaNYL citrate 100 MCG/2 ML VIAL IV PRN (08:39)
--- NOTE | 2019-03-28 08:43 | Anesthesiology Consultation ---
Date of Service March 28, 2019 History Surgery Operation Date: 03/28/19 08:20 Proposed Procedures p Cystoscopy, Bilateral Retrograde Pyelogram, Bilateral Stent Placement - Curt England, Height/Weight Height: 5 ft 7 in Weight: 58.3 kg Allergies Allergy/AdvReac Type Severity Reaction Status Date / Time No Known Allergies Allergy Unverified 03/27/19 16:52 Medications Home Medications Medication Instructions Recorded Confirmed Last Taken albuterol sulfate [Ventolin HFA] 2 puff INHALATION Q6H PRN 03/27/19 03/27/19 Unknown cyanocobalamin (vitamin B-12) 1,000 mcg PO DAILY 03/27/19 03/27/19 Unknown [Vitamin B-12] lisinopril 5 mg PO DAILY 03/27/19 03/27/19 Unknown lutein 20 mg PO DAILY 03/27/19 03/27/19 Unknown metformin 500 mg PO TID 03/27/19 03/27/19 Unknown saw palmetto fruit 450 mg PO UD 03/27/19 03/27/19 Unknown Active Medications Generic Name Dose Route Start Last Admin Trade Name Freq PRN Reason Stop Dose Admin Cyanocobalamin 1,000 mcg 03/28/19 09:00 03/28/19 07:24 Vitamin B-12 PO 04/27/19 08:59 1,000 mcg DAILY ELIZABETH Administration Piperacillin Sod/Tazobactam 115 mls @ 28.75 mls/hr 03/28/19 03:00 03/28/19 07:54 Sod 3.375 gm/ Dextrose IV 03/30/19 02:59 Infused Q8H [facility] Infusion Protocol Insulin Aspart 0 units 03/27/19 21:00 03/28/19 07:53 Novolog Flexpen SC 04/26/19 20:59 Not Given ACHS ELIZABETH Past Medical History Medical History History of left bundle branch block (LBBB) Non-insulin dependent type 2 diabetes mellitus Past Surgical History Surgical History Surgical history unknown Social History Smoking Status: Former smoker Hx Alcohol Use: No Hx Substance Use: No Physical Exam Vital Signs Last Vital Signs Temp 36.5 C 03/28/19 06:49 Pulse 128 H 03/28/19 06:49 Resp 18 03/28/19 06:49 BP 102/71 03/28/19 08:29 Pulse Ox 100 03/28/19 06:49 Testing Laboratory Results 03/28/19 05:38 03/28/19 05:38 PT 16.2 Seconds (9.0-12.0) H 03/27/19 16:08 INR 1.6 (0.9-1.1) H 03/27/19 16:08 Hemoglobin A1c 7.6 % (4.5-5.6) H 03/28/19 05:38 Urine Color Yellow 03/27/19 00:02 Urine Appearance Turbid (Clear) A 03/27/19 00:02 Urine pH 5.0 (4.5-7.5) 03/27/19 00:02 Ur Specific Newborn 1.020 (1.000-1.030) 03/27/19 00:02 Urine Protein Trace (Negative) H 03/27/19 00:02 Urine Glucose (UA) Negative (Negative) 03/27/19 00:02 Urine Ketones Negative (Negative) 03/27/19 00:02 Urine Nitrite Negative (Negative) 03/27/19 00:02 Ur Leukocyte Esterase 2+ (Negative) H 03/27/19 00:02 Urine WBC (Auto) >30 /hpf (0-5) H 03/27/19 00:02 Urine RBC (Auto) >30 /hpf (0-4) H 03/27/19 00:02 U Hyaline Cast (Auto) 1-5 /lpf (0-5) 03/27/19 00:02 U Epithel Cells (Auto) 0-5 /lpf (0-5) 03/27/19 00:02 Urine Bacteria (Auto) Negative (Negative) 03/27/19 00:02 03/28/19 07:27 POC Glucose 116 H Electrocardiogram Date: 03/27/19 Findings: + ST @ (wide complex, intraventricular conduction delay, possible lateral infarct) Chest X-Ray Date: 03/27/19 Findings: + NAD
[2019-03-28] MEDS ORDERED: LISINOPRIL 5 MG TAB PO SCH (09:00)
[2019-03-28] MEDS ORDERED: NON-FORMULARY MEDICATION (Lutein 20 MG) PO SCH (09:00)
[2019-03-28] MEDS: METOPROLOL TARTRATE 25 MG TAB PO SCH ×2 (09:11→20:52)
[2019-03-28] MEDS: SODIUM CHLORIDE 0.45 % 1,000 ML IV SCH (09:11)
--- NOTE | 2019-03-28 09:23 | Consultation Report ---
DATE OF CONSULTATION: 03/28/2019 REQUESTING: Katarzyna Duarte PA-C. DRIVER/MERCHANDISER: John Garcia DO, [facility] Cardiology. REASON FOR CONSULTATION: Left bundle branch block, tachycardia, acute kidney injury. Dear Katarzyna: Thank you for requesting Cardiology consultation on the patient. He is a poor historian. He notes shortness of breath. He notes lower extremity edema. He denies any palpitations or fluttering or feeling his heart racing. Denies any lightheadedness or dizziness. He does appear mildly short of breath talking in sentences. He notes he lives on the second floor. He can climb a flight of stairs without having to stop. Otherwise, he walks with a walker. He denies any lightheadedness or dizziness. He denies feeling his heart racing. He lives with his ex-. He looks quite disheveled. He has bruising on his forearms. He is a very poor historian. He denies cough, fevers, chills or sweats. His urine is cloudy and turbid. It sounds like he saw his primary care provider and has had a history of tachycardia in the past. He refused an Emergency Room evaluation in the past and was placed on Lasix a number of weeks ago. He stopped that Lasix after a week as he was wetting the bed and could not control his bladder. In addition, he is in acute renal failure. He has significant elevation in his LFTs. His lactate is elevated and his TSH is elevated. The rest of complete review of systems is otherwise negative. PAST MEDICAL HISTORY: 1. Left bundle branch block. 2. Wide complex tachycardia, possibly 2:1 atrial flutter versus sinus tach. 3. Reasonable carotid upstrokes. 4. Hypertension. 5. Altered mental status. 6. Acute kidney injury. 7. Elevated LFTs. 8. Anemia. 9. Elevated TSH. FAMILY HISTORY: Noncontributory. ALLERGIES: No known drug allergies. MEDICATIONS: Reviewed in electronic medical record. Of note, he is not on anticoagulation. 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 He is a former smoker. He lives with his ex-. PHYSICAL EXAMINATION: GENERAL: He is awake, alert, oriented x3. He is confused. VITAL SIGNS: His heart rate is 128, respirations 18, sats are 100% on room air, blood pressure 102/71. HEENT: His carotid upstrokes felt reasonably normal. He did not have carotid bruits. His jugular venous pressure was not elevated. Sclerae is anicteric. His hearing is mildly diminished. LUNGS: Clear to auscultation bilaterally. No rales, rhonchi or wheezing. HEART: Regular, but tachycardic. No appreciable murmurs, rubs or gallops. His PMI was nondisplaced. ABDOMEN: Soft, nontender, nondistended. Positive bowel sounds. EXTREMITIES: No clubbing or cyanosis. He has moderate pitting edema to the mid tibia bilaterally. PSYCHIATRIC: He appeared confused. DIAGNOSTIC STUDIES: EKG: Left bundle branch block with a wide complex tachycardia, I cannot exclude 2:1 flutter. Sodium 148, potassium 5.4, BUN 82, creatinine 2.66. His lactate is 5.4, down from 7.8. His LFTs are significantly elevated, LDL 41, HDL 21. Troponin 0.266. White count is 17, hemoglobin 11.1, platelet count 152. IMPRESSION: 1. Wide complex tachycardia. 2. Left bundle branch block. 3. Hypovolemia, urinary tract infection, confusion, elevated transaminases, with acute renal failure and elevated lactate. I recommend an echocardiogram. If you look at the point of care echo that was done, there is no pericardial effusion and his LV function looked reasonable. He will need a complete echocardiogram to assess his LV function. I do not appreciate a murmur of aortic stenosis and his aortic valve leaflets, on the point of care echo, seem to open completely. Interestingly, he does not have a pericardial effusion or pleural effusion and his chest x-ray is not consistent with heart failure. If anything, his albumin is falsely elevated and likely he is severely dehydrated and in essence has some degree of failure to thrive. I would fix his electrolytes and his renal function. I did give him half normal saline given his hypernatremia and will start low dose metoprolol 12.5 mg b.i.d. with appropriate hold. Once his echo is completed, further recommendations will be forthcoming. He is not an anticoagulation candidate and I cannot give him digoxin at this point given his acute kidney injury. Thank you for allowing us to participate in his care.
--- NOTE | 2019-03-28 10:20 | History & Physical Bridge Note ---
Date of Service March 28, 2019 History & Physical Bridge Note I have examined the patient, reviewed the History & Physical and in the interval since the performance of the History & Physical I have noted the following changes of clinical significance: no changes noted Plan for urgent bilateral stent placement. Discussed with both patient and son who are both agreeable to proceed.
[2019-03-28] MEDS ORDERED: PROPOFOL IV EMULSION 10 MG/ML 20 ML VIAL IV ONE (11:23)
[2019-03-28] MEDS ORDERED: LIDOCAINE HCL 2% 2 ML VIAL/AMP(20MG/ML) INFIL ONE (11:23)
[2019-03-28] MEDS ORDERED: PHENYLEPHRINE 100MCG/ML 5ML SYR ONE (11:23)
[2019-03-28] MEDS ORDERED: fentaNYL citrate 100 MCG/2 ML VIAL ONE (11:24)
[2019-03-28] MEDS ORDERED: IOTHALAMATE MEGLUMINE II 17.2% 250 ML VIAL ONE (11:47)
--- NOTE | 2019-03-28 12:27 | Operative Report ---
PG Post Operative Report Pre & Post Diagnosis Operation Date: 03/28/19 08:20 Pre-Op Diagnosis: Bilateral Obstructing Stones, Sepsis POST: same I identified the patient and participated in the time-out.: Yes Procedure Operation Date: 03/28/19 08:20 Actual Procedures p Cystoscopy, Bilateral Retrograde Pyelogram, Bilateral Stent Placement - Curt England DO Surgeon Curt England, II, DO Gauge Maker None Estimated Blood Loss 2 Findings Consistent with Post-Op Diagnosis Very firm prostate with obstruction. Severely obstructed bilateral ureters. Specimens None Drains 6 Fr Bilateral Stents. Anesthesia Type MAC Complications none Disposition Disposition: Recovery Room Indications Sepsis with bilateral stones and altered mental status with lactic acidosis and renal failure. Description of Procedure Patient was consented and brought back to the operating room. Patient was placed under anesthesia in the supine position and moved to the dorsal lithotomy position. Patient was prepped and draped in the regular sterile fashion. A time out was completed. A 30degree Cystoscope was placed into the bladder and the entire bladder was examined. The UO's were identified. The left and then the right UO were cannulized with a catheter and a retrograde pyelogram was completed. Both sides had severe obstruction with multiple stones that required significant manipulation to place the catheters. A wire was then placed. With the wire in place, a 6 Fr Double J stent was placed on each side. It was confirmed with fluoroscopy. With the stents in place, the bladder was emptied. The scope was removed. A 20 Fr Coude catheter was placed. The patient was cleaned, aroused from anesthesia, and transferred to the pacu in stable condition having tolerated the procedure well with no complications. I was present and participated in all aspects of the procedure. The patient will be monitored in the PACU until transferred. I attest to the content of the Intraoperative Record and any orders documented therein. Any exceptions are noted below.
--- NOTE | 2019-03-28 12:42 | Fluoroscopy Report ---
FL retrograde includes kub HISTORY: B/L STENT PLACEMENT - RIGHT RETROGRADE FLUOROSCOPY TIME: 1 minute 24 seconds. FINDINGS: 3 fluoroscopic spot images were submitted for review. There is a Cancino catheter and bilater al ureteral stents identified. The ureteral stents appear in good position. IMPRESSION: Fluoroscopy provided for bilateral ureteral stent placement which appear in good positio n.. Electronically signed by: Tom Douglass M.D. 03/28/2019 12:41 PM
--- NOTE | 2019-03-28 13:27 | Anesthesiology Progress Note ---
Date of Service March 28, 2019 Anesthesia Post Procedure Vital Signs Vital Signs: Temp Pulse Pulse Pulse Resp BP BP 03/28/19 13:20 126 H 17 03/28/19 13:10 127 H 17 03/28/19 13:00 97.2 F L 124 H 15 03/28/19 12:50 125 H 17 03/28/19 12:40 127 H 22 03/28/19 12:34 97.2 F L 126 H 23 03/28/19 10:37 97.5 F L 129 H 16 03/28/19 08:29 102/71 03/28/19 06:49 97.7 F 128 H 18 03/28/19 06:12 97.7 F 128 H 03/28/19 03:09 122 H 22 87/61 L 03/28/19 00:54 120 H 03/28/19 00:41 92/57 L 03/27/19 23:12 117 H 22 77/51 L 03/27/19 20:35 128 H 22 03/27/19 19:58 03/27/19 19:43 122 H 83/52 L 03/27/19 19:33 129 H 16 76/49 L 03/27/19 19:13 94/66 L 03/27/19 19:12 130 H 26 H 03/27/19 19:11 130 H 19 03/27/19 19:10 128 H 18 03/27/19 19:01 133 H 16 03/27/19 19:00 136 H 22 110/72 03/27/19 18:54 136 H 18 114/51 L 03/27/19 18:50 139 H 15 03/27/19 18:40 136 H 23 03/27/19 18:31 118 H 17 03/27/19 18:20 137 H 14 03/27/19 18:10 137 H 19 03/27/19 18:01 136 H 19 03/27/19 18:00 136 H 27 H 106/77 03/27/19 17:54 138 H 16 03/27/19 17:40 136 H 19 03/27/19 17:31 127 H 8 L 03/27/19 17:30 137 H 21 119/85 03/27/19 17:20 139 H 21 03/27/19 17:17 138 H 20 112/96 03/27/19 17:10 138 H 17 03/27/19 17:00 138 H 20 03/27/19 16:50 138 H 17 03/27/19 16:48 134 H 21 03/27/19 16:30 127 H 18 03/27/19 16:20 137 H 18 03/27/19 16:11 03/27/19 16:10 126 H 19 03/27/19 16:04 150 H 22 112/78 03/27/19 15:50 98.6 F 137 H 20 101/69 BP Pulse Ox 03/28/19 13:20 89/60 L 93 03/28/19 13:10 95/65 L 98 03/28/19 13:00 97/70 L 96 03/28/19 12:50 116/69 94 03/28/19 12:40 106/61 93 03/28/19 12:34 87/67 L 100 03/28/19 10:37 97/67 L 95 03/28/19 08:29 03/28/19 06:49 96/62 L 100 03/28/19 06:12 92/60 L 03/28/19 03:09 99 03/28/19 00:54 03/28/19 00:41 03/27/19 23:12 96 03/27/19 20:35 83/58 L 03/27/19 19:58 78/62 L 03/27/19 19:43 03/27/19 19:33 100 03/27/19 19:13 03/27/19 19:12 03/27/19 19:11 03/27/19 19:10 03/27/19 19:01 03/27/19 19:00 03/27/19 18:54 03/27/19 18:50 03/27/19 18:40 03/27/19 18:31 03/27/19 18:20 03/27/19 18:10 100 03/27/19 18:01 98 03/27/19 18:00 100 03/27/19 17:54 98 03/27/19 17:40 03/27/19 17:31 100 03/27/19 17:30 96 03/27/19 17:20 100 03/27/19 17:17 100 03/27/19 17:10 03/27/19 17:00 03/27/19 16:50 03/27/19 16:48 03/27/19 16:30 98 03/27/19 16:20 98 03/27/19 16:11 99 03/27/19 16:10 99 03/27/19 16:04 99 03/27/19 15:50 99 Transfer of Care Handoff Completed per policy Notes Mental Status: alert / awake / arousable and participated in evaluation Patient Amnestic to Procedure: Yes Nausea / Vomiting: adequately controlled Pain: adequately controlled Airway Patency, RR, SpO2: stable & adequate BP & HR: stable & adequate and see Notes below Hydration State: stable & adequate Anesthetic Complications: no major complications apparent and Pt Satisfied with anesthetic care Notes: The patient was tachycardic HR 120s-130s pre-operatively. The patient remains tachycardic 120s in post-op. His BP has been stable. The patient is otherwise stable for discharge to telemetry.
--- NOTE | 2019-03-28 15:29 | Hospitalist Progress Note ---
Date of Service March 28, 2019 Assessment & Plan (1) Sepsis: Likely related to UTI/stones CTAP noted for b/l stones, several obstructive stents placed 03/28 Urine cx pending Elevated lactic acid noted Started on zosyn/vanco on 03/28 early AM, d/c vanco 03/28 afternoon--continue zosyn (2) CHF (congestive heart failure): -Likely chronic systolic chf -Significant hypervolemia on exam. Continue IV diuresis, received Lasix 40 mg IV in ED Patient is incontinent of urine, nursing was unable to place garcia in ED, successful placement in the OR 03/28 -CXR noted -ECHO with EF 30-35% and severe anterior wall hypokinesis -Troponin elevated at 0.270 on admission, essentially same x3 total -Cardiology c/s pending (3) Tachycardia: - likely related to above (4) Benign essential HTN: - Cont lisinopril - Cardiology consulted - NOT on BB, use Lopressor IV 5 mg PRN for HR > 100. Hold for SBP <100 or DBP< 70 (5) History of left bundle branch block (LBBB): -History per and records, no previous EKG to for me to review, attempt to retrieve from PCP per day team, noted on EKG in the ER (6) Altered mental status: -Increased confusion over the past week, seems likely related to sepsis -WBC= 14.7, lactic acid initially elevated at 2.7, repeat at 19:10, no IVF due to significant volume overload as above -UA noted, cx pending (7) [place] (acute kidney injury): -Creatinine elevated at 2.19 on admission, no baseline in system likely related to above (8) DM type 2 (diabetes mellitus, type 2): SSI PRN A1c 7.6 Holding metformin (9) Transaminitis: - AST = 56, ALT = 115, alk phos = 175 CTAP noted for cirrhosis (10) Anemia: -Hemoglobin 11.9 on admission, stable (11) Elevated TSH: -TSH = 5.260, free T4 pending, possible hypothyroidism which has not been diagnosed, will follow (12) Enlarged prostate: -This is been reported by the as patient was supposed to have biopsy completed several years ago due to an elevated PSA, patient refused. Consider recheck PSA during this admission. (13) DVT prophylaxis: -Heparin subcu, SCDs CODE STATUS: DNR Disposition: From home, lives with ex-, likely to remain in the hospital x2 days. Subjective Pt with overnight hypoTN. Resulting CTAP with obstructing renal stones. Pt taken to OR today for b/l stents. Ex- is present at bedside and states that pt is much more comfortable than he has been over the last week. He has not really woken up from the OR, but she states he is not SOB and his LE swelling is much better. Pt denies fever, SOB, chest pain, abd pain, n/v/c/d, LE pain or swelling--he has been doing so since admission. She is uncertain if pt follows with cardiology. She states that she has not been involved in his care until the last month or so. She does not believe that he does follow with cardiology though. Review of Systems Review of Systems: Pertinent positives and negatives reviewed in HPI--all others negative--although not certain pt is reporting reliable info Physical Exam Constitutional: WD/WN, vitals as above Eyes: normal visual tobin by confrontation and + anicteric sclerae Neck: normal visual inspection and trachea midline Respiratory: normal respiratory effort, lungs clear to auscultation normal respiratory effort; no respiratory distress Auscultation: + crackles; no wheezes Cardiovascular: Rate/Rhythm: regular rhythm and + tachycardic Gastrointestinal (Abdomen): Inspection/Auscultation: + abdomen distended Percussion/Palpation: abdomen soft; abdomen nontender Musculoskeletal: Head/Neck/Chest: normocephalic and head atraumatic b/l LE is much improved Skin: no rashes, warm and dry Neurologic: awake; not confused Speech / Cognition: normal speech Psychiatric: A+Ox3, euthymic affect Orientation: oriented x 3; + uncooperative Does not seem irritated like he had been on admission, but not interactive overall. Answers with blunt yes/no answers. Results & Data Vital Signs (Past 12 Hours) Vital Signs Temp Pulse Pulse Resp BP BP Pulse Ox 03/28/19 15:03 36.7 C 125 H 18 94/66 L 97 03/28/19 14:47 36.2 C L 128 H 18 88/59 L 98 03/28/19 13:56 36.4 C L 128 H 18 96/74 L 100 03/28/19 13:39 36.3 C L 124 H 20 94/59 L 100 03/28/19 13:20 126 H 17 89/60 L 93 03/28/19 13:10 127 H 17 95/65 L 98 03/28/19 13:00 36.2 C L 124 H 15 97/70 L 96 03/28/19 12:50 125 H 17 116/69 94 03/28/19 12:40 127 H 22 106/61 93 03/28/19 12:34 36.2 C L 126 H 23 87/67 L 100 03/28/19 10:37 36.4 C L 129 H 16 97/67 L 95 03/28/19 08:29 102/71 03/28/19 06:49 36.5 C 128 H 18 96/62 L 100 03/28/19 06:12 36.5 C 128 H 92/60 L PG Care Time/CCT Total # of Minutes Spent Total Time Spent with Patient: Total time spent is greater than 50% in coordination of care (as documented) at patient's floor/unit and/or counseling patient: (1) CHF (congestive heart failure) Heart failure chronicity: acute Heart failure type: systolic Qualified Code(s): I50.21 - Acute systolic (congestive) heart failure (2) Anemia Anemia type: unspecified type Qualified Code(s): D64.9 - Anemia, unspecified
[2019-03-29] MEDS: SODIUM CHLORIDE 0.45 % 1,000 ML IV SCH (00:16)
[2019-03-29] MEDS: PIPERACILLIN/TAZOBACTAM 3.375 GM in DEXTROSE 5% 100 ML IV SCH ×3 (01:54→21:14)
[2019-03-29 06:14] LABS: Hematocrit (blood only) 36.3 % (42-52); Hemoglobin 11.5 g/dL (14.0-18.0); Mean Corpuscular Hemoglobin 27.6 pg (25-34); Mean Corpuscular Hgb Conc 31.7 g/dL (32-36); Mean Corpuscular Volume 87.1 fL (80-100); Mean Platelet Volume 11.7 fL (7.4-10.4); Platelet Count 147 K/uL (130-400); RDW Coefficient of Variation 15.5 % (11.5-14.5); RDW Standard Deviation 49.4 fL (36.4-46.3); Red Blood Count 4.17 M/uL (4.7-6.1); White Blood Count 17.34 K/uL (4.8-10.8)
[2019-03-29] MEDS: SODIUM BICARBONATE 8.4% 100 MEQ in DEXTROSE 5% 1,000 ML IV SCH ×3 (06:34→21:16)
[2019-03-29 06:50] LABS: Albumin Level 2.8 gm/dl (3.4-5.0); BUN Creatinine Ratio 30.3 (10-20); Calcium 8.6 mg/dl (8.5-10.1); Creatinine Clr Calc Pharmacy 16.1 ml/min; Est GFR (African American) 20.8; Potassium 5.5 mmol/L (3.5-5.1)
[2019-03-29 06:53] LABS: Albumin Globulin Ratio 0.8 (0.9-2); Bilirubin,Total 1.3 mg/dl (0.2-1); Globulin 3.4 gm/dl (2.5-4.0); Total Protein 6.2 gm/dl (6.4-8.2)
[2019-03-29] MEDS: INSULIN ASPART 100 UNITS/ML 3 ML PEN SC SCH ×4 (08:54→21:16)
[2019-03-29] MEDS: CYANOCOBALAMIN 500 MCG TABLET (VITAMIN B-12) PO SCH (08:54)
[2019-03-29] MEDS: METOPROLOL TARTRATE 25 MG TAB PO SCH ×2 (08:54→21:11)
--- NOTE | 2019-03-29 10:18 | Cardiology Progress Note ---
Date of Service March 29, 2019 Subjective He is currently a one-to-one in the room. He looks worse than yesterday. He is arousable but more confused. His urine is dark in color. History is obtained from the nursing staff and conversation was had with Dr. Medeiros of the hospitalist service Results & Data Vital Signs (Past 12 Hours) Vital Signs Temp Pulse Pulse Resp BP Pulse Ox 03/29/19 05:50 36.4 C L 127 H 20 95/63 L 98 03/28/19 23:18 90/60 L 03/28/19 22:56 36.3 C L 130 H 19 80/55 L 97 03/28/19 22:20 130 H He is confused. HEENT: His carotid upstrokes are mildly reduced. He did not have carotid bruits. His jugular venous pressure was not elevated. Sclerae is anicteric. LUNGS: Clear to auscultation bilaterally. No rales, rhonchi or wheezing. HEART: Regular, but tachycardic. No appreciable murmurs, rubs or gallops. His PMI was nondisplaced. EXTREMITIES: No clubbing or cyanosis. He has mild pitting edema to the mid tibia bilaterally. PSYCHIATRIC: He appeared confused. IMPRESSION: 1. Wide complex tachycardia. 2. Left bundle branch block. 3. Hypovolemia, 4. urinary tract infection 5. confusion 6. elevated transaminases 7. acute renal failure and elevated lactate. His urine output is so-so. He remains hypotensive. I would continue with aggressive fluid resuscitation. His white count is elevated and his vitals are consistent with Sirs. His renal function is worse and his transaminases are worse. His echo is consistent with biventricular dysfunction. He has significant RV dysfunction and moderate LV dysfunction. 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 It is unclear if his rhythm with his left bundle branch block is a sinus tach or an atrial tach or atrial flutter.. He cannot be anticoagulated at this point. We could consider amiodarone IV to try to slow his rate down the difficulty is that his LFTs are significantly elevated. He may benefit from low-dose Chaz- Synephrine to increase renal perfusion. Nephrology will be consulted today. If he remains tenuous like he is he may need to be transferred to the ICU for critical care evaluation.
--- NOTE | 2019-03-29 12:29 | Nephrology Consultation ---
Date of Consultation March 29, 2019 Assessment & Plan (1) DAKOTA (acute kidney injury): Miky is a 78-year-old male who presented with evidence of sepsis and mental status changes. He was felt to be volume overloaded on presentation. His echocardiogram demonstrates systolic dysfunction with a left ventricular ejection fraction of 30-35% complicated by severe anterior hypokinesis. Patient also has some notable RV dysfunction. His PA systolic pressures were 40-45. This is all in the setting of renal insufficiency. It is unclear what the patient's baseline kidney function is. His creatinine on presentation was 2.2 mg/dL. Creatinine now has an hours and stabilized. He had electrolyte abnormalities including hyperkalemia and metabolic acidosis. Patient had developed a lactic acidosis in the setting of sepsis with hypotension. His blood and urine cultures have been negative to date. The patient has been treated for obstructing distal ureteral stones. His urine output is appropriate. His volume status has improved. On exam the patient did acosta slightly volume depleted. I would avoid additional diuretics at this time. I would suggest that we continue IV fluids with bicarbonate. Would maintain a slightly positive fluid balance and continue to monitor metabolic profiles twice daily. Medications are appropriately dosed for kidney function. Vancomycin has been stopped and the patient remains on Zosyn. There is no need update renal imaging at this time. Nephrology will continue to follow along with follow-up evaluation tomorrow morning. Thankfully there is no emergent indication for dialysis at this time. History of Present Illness Reason for Consultation: DAKOTA Requesting Physician: Rashid Medeiros MD Attending Physician: Rashid Medeiros MD History of Present Illness Miky is a 78-year-old male who was seen and evaluated this morning for consultation regarding acute kidney injury. Patient's baseline kidney function is unknown. Miky presented to the emergency department at [facility] on March 27 with 1 week of shortness of breath. The patient was noted to have mental status changes on presentation. He was found to be volume overloaded and given 1 dose of IV furosemide 40 mg. Creatinine on presentation was 2.19 mg/dL. After admission the patient developed a wide complex tachycardia with hypotension. He was noted to have SIRS criteria. Vancomycin and Zosyn were started for early goal- directed therapy. An abdominal CT cm was obtained for elevated lactate levels and some abdominal discomfort. This demonstrated obstructing bilateral distal ureteral stones. Patient was taken to the operating room and had bilateral ureteral stents placed with cystoscopy and retrograde pyelogram. Following the procedure he continued to have some persistent lethargy and mental status changes. Fortunately creatinine continued to rise. Cardiology evaluation was obtained. Patient underwent a transthoracic echocardiogram which revealed at least moderate impairment of left ventricular systolic function with some severe right ventricular dysfunction. The patient's abdominal CT also demonstrated evidence of CORDOVA with some early findings consistent with cirrhosis. Lactic acid level trended up until yesterday when it peaked at 7.8. His no improved to 5.4. Blood and urine cultures have been negative to date. Patient has been receiving IV fluid replacement with sodium bicarbonate 100 mEq per L at 80 mL per hour. When the patient was seen and evaluated this morning to 1-1 was sitting at the bedside. General was not able to provide a significant medical history. He was lethargic. He denied any pain. Allergies Allergy/AdvReac Type Severity Reaction Status Date / Time No Known Allergies Allergy Unverified 03/27/19 16:52 Home Medications Home Medications Medication Instructions Recorded Confirmed Type albuterol sulfate [Ventolin HFA] 2 puff INHALATION Q6H PRN 03/27/19 03/27/19 History cyanocobalamin (vitamin B-12) 1,000 mcg PO DAILY 03/27/19 03/27/19 History [Vitamin B-12] lisinopril 5 mg PO DAILY 03/27/19 03/27/19 History lutein 20 mg PO DAILY 03/27/19 03/27/19 History metformin 500 mg PO TID 03/27/19 03/27/19 History saw palmetto fruit 450 mg PO UD 03/27/19 03/27/19 History Patient History Medical History History of left bundle branch block (LBBB) Non-insulin dependent type 2 diabetes mellitus Surgical History Surgical history unknown Social History Preferred Language: Nigerian Communication Ability: Impaired Beliefs That Will Affect Care: None Current Living Situation: Significant Other Other Information That Helps Us Care for You: No Feels Safe at Home: Yes Safety Concerns: Feels Safe At This Time Smoking Status: Former smoker Hx Alcohol Use: No Hx Substance Use: No Review of Systems Review of Systems: All systems reviewed & are unremarkable except as noted in HPI & below and Unobtainable due to cognitive status Physical Exam Constitutional: + ill appearing, + thin and + frail appearing; not edematous Eyes: no scleral abnormality and no corneal abnormality ENMT: Mouth: + dry oral mucous membranes; no oral mucosal abnormality Neck: normal visual inspection; + trachea not midline Respiratory: normal respiratory effort Auscultation: lungs clear to auscultation bilaterally Cardiovascular: Rate/Rhythm: regular rate Heart Sounds: normal S1 and normal S2 Vessels: + JVD Extremities: no edema Gastrointestinal (Abdomen): Inspection/Auscultation: + abdomen distended Percussion/Palpation: abdomen soft; abdomen nontender Musculoskeletal: Extremities: no cyanosis and no clubbing Skin: normal turgor; no lesions Neurologic: Motor/Sensory: no tremor and no asterixis Psychiatric: Orientation: alert and oriented x 3 Results & Data Vital Signs (Past 12 Hours) Vital Signs Temp Pulse Resp BP BP Pulse Ox 03/29/19 11:40 36.4 C L 98 H 18 93/54 L 99 03/29/19 05:50 36.4 C L 127 H 20 95/63 L 98 Laboratory Results Laboratory Results - last 24 hr 03/28/19 03/28/19 03/29/19 16:41 20:28 05:43 WBC 17.34 H RBC 4.17 L Hgb 11.5 L Hct 36.3 L MCV 87.1 MCH 27.6 MCHC 31.7 L RDW Std Deviation 49.4 H RDW Coeff of George 15.5 H Plt Count 147 MPV 11.7 H PT INR Sodium Potassium Chloride Carbon Dioxide Anion Gap BUN Creatinine Est Cr Clr Drug Dosing Est GFR ( Amer) Est GFR (Non-Af Amer) BUN/Creatinine Ratio Glucose POC Glucose 97 93 Calcium Total Bilirubin AST ALT Alkaline Phosphatase Total Protein Albumin Globulin Albumin/Globulin Ratio 03/29/19 03/29/19 03/29/19 05:43 11:14 14:48 WBC RBC Hgb Hct MCV MCH MCHC RDW Std Deviation RDW Coeff of George Plt Count MPV PT 21.5 H INR 2.2 H Sodium 147 H Potassium 5.5 H Chloride 116 H Carbon Dioxide 17 L Anion Gap 14.0 H BUN 96 H Creatinine 3.16 H D Est Cr Clr Drug Dosing 16.1 Est GFR ( Amer) 20.8 Est GFR (Non-Af Amer) 18.0 BUN/Creatinine Ratio 30.3 H Glucose 93 POC Glucose 173 H Calcium 8.6 Total Bilirubin 1.3 H AST 350 H ALT 246 H Alkaline Phosphatase 130 H Total Protein 6.2 L Albumin 2.8 L Globulin 3.4 Albumin/Globulin Ratio 0.8 L 03/29/19 14:48 WBC RBC Hgb Hct MCV MCH MCHC RDW Std Deviation RDW Coeff of George Plt Count MPV PT INR Sodium 147 H Potassium 4.9 Chloride 119 H Carbon Dioxide 16 L Anion Gap 12.0 H BUN 94 H Creatinine 3.02 H Est Cr Clr Drug Dosing 16.9 Est GFR ( Amer) 22.0 Est GFR (Non-Af Amer) 19.0 BUN/Creatinine Ratio 31.2 H Glucose 154 H POC Glucose Calcium 8.0 L Total Bilirubin AST ALT Alkaline Phosphatase Total Protein Albumin Globulin Albumin/Globulin Ratio PG Care Time/CCT Total # of Minutes Spent Total Time Spent with Patient: Total time spent is greater than 50% in coordination of care (as documented) at patient's floor/unit and/or counseling patient:
--- NOTE | 2019-03-29 12:47 | Urology Progress Note ---
Date of Service March 29, 2019 Assessment & Plan (1) Bilateral ureteral calculi: 78yo M with Afib with RVR, DAKOTA, bilateral obstructing distal ureteral stones; POD #1 s/p bilateral ureteral stent placement. Unfortunately Cr has continued to rise, DAKOTA may be combination of pre-renal and post-renal causes. Appreciate nephrology's input. Continue garcia catheter for now. Prelim UC&S and BCx negative. Will allow primary team to manage abx at this time. Will maintain bilateral stents and readdress stone management when recovered from acute illness as an outpatient. Thank you for allowing us to participate in the acute care of Mr. Hays. Please reconsult us with additional questions, concerns or changes in patient status. Subjective 78yo M with Afib with RVR, DAKOTA, bilateral obstructing distal ureteral stones; POD #1 s/p bilateral ureteral stent placement. See operative ntoes, however both sides had severe obstruction with multiple stones that required significant manipulation to place the catheters. Unfortunately Cr has continued to climb despite max drainage with bilateral stents and garcia catheter in place. Appreciate nephrologys recommendations. Per ex-, pt has never complained of pain and rarely shares medical information. It is unclear how long stones may have been obstructing. Pt is sleeping at time of evaluation. Per , he is not "more confused" today, able to identify her more clearly than in days past. He still requires sitter for combative behavior, attempt to pull IVs, etc. Garcia draining dark brown urine. Per pt is not complaining of flank or suprapubic discomfort. Review of Systems Review of Systems: Unobtainable due to reduced consciousness Physical Exam Physical Exam: lethargic RRR abd soft, nontender garcia draining brown urine Results & Data Vital Signs (Past 12 Hours) Vital Signs Temp Pulse Resp BP BP Pulse Ox 03/29/19 11:40 36.4 C L 98 H 18 93/54 L 99 03/29/19 05:50 36.4 C L 127 H 20 95/63 L 98 PG Care Time/CCT Total # of Minutes Spent Total Time Spent with Patient: Total time spent is greater than 50% in coordination of care (as documented) at patient's floor/unit and/or counseling patient:
--- NOTE | 2019-03-29 14:44 | Hospitalist Progress Note ---
Date of Service March 29, 2019 Assessment & Plan (1) Bilateral ureteral calculi: CTAP noted for b/l stones, several obstructive. S/p bilateral stenting on 03/[address] England. - Urology following - Appreciate help - Continue abx for presumed UTI - Follow urine culture from 03/28 (2) Sepsis: Likely related to UTI/stones. qSOFA 2/3 (AMS & hypotension). - As above (3) Tachycardia: He is in sinus tach with LBBB vs. aflutter vs. atrial tach. Unclear how long this has been going on. - Likely related to above illness (4) DAKOTA (acute kidney injury): Creatinine elevated at 2.19 on admission, no baseline in system. - Cr up to 3.16 on 03/29 with mildly high potassium. - Nephrology consulted on 03/29 - Pending recs - Continue IV fluids (5) CHF (congestive heart failure): Chronic systolic CHF. Echo on 03/28 showed EF 30-35%. Dr. 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 - Received Lasix 40 mg IV in ED -> Hypotensive afterward - Seen by Dr. Garcia with thought that he is volume down. - Monitor volume status with IV fluids (6) Benign essential HTN: BP borderline hypotensive with him running 90/50 most of the day. - Hold lisinopril for DAKOTA - Giving beta-ulises for his tachycardia (7) History of left bundle branch block (LBBB): History per and records, no previous EKG to for me to review. - As above (8) Altered mental status: Increased confusion over the past week, seems likely related to sepsis. - As above (9) DM type 2 (diabetes mellitus, type 2): A1c was 7.6% on 03/28. - Holding metformin - Sliding scale insulin (10) Transaminitis: AST = 56, ALT = 115, alk phos = [address] a/p on 03/28 noted for cirrhotic appearing liver. - AST/ALT up to 350/250 on 03/29. (11) Anemia: Hemoglobin 11.9 on admission, stable over the last few days. - Monitor (12) Elevated TSH: TSH = 5.260, free T4 1.04 on admission. - Will defer while acutely ill. - Will need recheck in 4-6 weeks. (13) Enlarged prostate: This is been reported by the as patient was supposed to have biopsy completed several years ago due to an elevated PSA, patient refused. - May be contributing to his presenting DAKOTA - Outpatient follow up with urology (14) DVT prophylaxis: SCDs - Low DVT risk per admission calculator Subjective Honestly feels ok at this time. He reports no major localizing complaints. Reports no fevers/chills, chest pain, shortness of breath, abdominal pain, nausea, or vomiting. Physical Exam Constitutional: + cachectic and + frail appearing; no acute distress Eyes: EOM intact bilaterally; no conjunctival abnormality ENMT: external ear and nose normal, oropharynx normal Neck: trachea midline, no thyromegaly normal visual inspection Respiratory: normal respiratory effort, lungs clear to auscultation no respiratory distress Cardiovascular: Rate/Rhythm: regular rhythm and + tachycardic Heart Sounds: normal S1 and normal S2 Vessels: no JVD Extremities: no edema Gastrointestinal (Abdomen): Inspection/Auscultation: abdomen normal to inspection; abdomen not distended Musculoskeletal: no cyanosis or clubbing, extremities motor strength 5/5 Skin: no rashes, warm and dry Neurologic: moves all extremities and awake Psychiatric: Orientation: alert, oriented to person and cooperative Results & Data Vital Signs (Past 12 Hours) Vital Signs Temp Pulse Resp BP BP Pulse Ox 03/29/19 11:40 36.4 C L 98 H 18 93/54 L 99 03/29/19 05:50 36.4 C L 127 H 20 95/63 L 98 PG Care Time/CCT Total # of Minutes Spent Total Time Spent with Patient: Total time spent is greater than 50% in coord ination of care (as documented) at patient's floor/unit and/or counseling patient: (1) CHF (congestive heart failure) Heart failure chronicity: acute Heart failure type: systolic Qualified Code(s): I50.21 - Acute systolic (congestive) heart failure (2) Anemia Anemia type: unspecified type Qualified Code(s): D64.9 - Anemia, unspecified
[2019-03-29] MEDS ORDERED: PHYTONADIONE 5 MG in SODIUM CHLORIDE 0.9% 50 ML IV ONE (15:00)
[2019-03-29 15:20] LABS: INR 2.2 (0.9-1.1); Prothrombin Time 21.5 Seconds (9.0-12.0)
[2019-03-29 15:22] LABS: BUN Creatinine Ratio 31.2 (10-20); Creatinine Clr Calc Pharmacy 16.9 ml/min; Potassium 4.9 mmol/L (3.5-5.1)
[2019-03-29 16:13] LABS: Albumin Level 2.5 gm/dl (3.4-5.0); Bilirubin Direct 0.5 mg/dl (0-0.2); Bilirubin,Total 1.1 mg/dl (0.2-1); Total Protein 5.6 gm/dl (6.4-8.2)
[2019-03-29 17:53] LABS: Fibrinogen 191 mg/dl (184-400)
[2019-03-29 18:20] LABS: Appearance Urine Cloudy (Clear); Bacteria Urine Automated Negative (Negative); Bilirubin Urine Negative (Negative); Blood Urine 3+ (Negative); Epithelial Cell Urine Auto >30 /lpf (0-5); Glucose Urine UA Negative (Negative); Ketones Urine Negative (Negative); Leukocyte Esterase Urine 1+ (Negative); Nitrite Urine Negative (Negative); Protein Urine 3+ (Negative); Specific Gravity Urine 1.022 (1.000-1.030); Urobilinogen Urine Negative (Negative); WBC Urine Automated >30 /hpf (0-5)
[2019-03-29 18:22] LABS: Color Urine Red
[2019-03-29 18:46] LABS: RBC Urine Automated >30 /hpf (0-4)
[2019-03-29 18:47] LABS: Renal Epithelial Cells Urine 0-5 /lpf (0-5)
--- NOTE | 2019-03-29 20:48 | Cardiology Consultation ---
Date of Consultation March 29, 2019 History of Present Illness Attending Physician: Rashid Medeiros MD Allergies Allergy/AdvReac Type Severity Reaction Status Date / Time No Known Allergies Allergy Unverified 03/27/19 16:52 Home Medications Home Medications Medication Instructions Recorded Confirmed Type albuterol sulfate [Ventolin HFA] 2 puff INHALATION Q6H PRN 03/27/19 03/27/19 History cyanocobalamin (vitamin B-12) 1,000 mcg PO DAILY 03/27/19 03/27/19 History [Vitamin B-12] lisinopril 5 mg PO DAILY 03/27/19 03/27/19 History lutein 20 mg PO DAILY 03/27/19 03/27/19 History metformin 500 mg PO TID 03/27/19 03/27/19 History saw palmetto fruit 450 mg PO UD 03/27/19 03/27/19 History Patient History Medical History History of left bundle branch block (LBBB) Non-insulin dependent type 2 diabetes mellitus Surgical History Surgical history unknown Social History Preferred Language: Yakut Communication Ability: Impaired Beliefs That Will Affect Care: None Current Living Situation: Significant Other Other Information That Helps Us Care for You: No Feels Safe at Home: Yes Safety Concerns: Feels Safe At This Time Smoking Status: Former smoker Hx Alcohol Use: No Hx Substance Use: No Results & Data Vital Signs (Past 12 Hours) Vital Signs Temp Pulse Pulse Resp BP BP Pulse Ox 03/29/19 19:00 36.4 C L 128 H 18 96/61 L 99 03/29/19 15:49 94/64 L 03/29/19 15:35 36.4 C L 128 H 20 97 03/29/19 11:40 36.4 C L 98 H 18 93/54 L 99
[2019-03-30 07:05] LABS: Basophils # (auto) 0.01 K/uL (0-0.2); Basophils % (auto) 0.1 %; Eosinophils # (auto) 0.09 K/uL (0-0.5); Eosinophils % (auto) 0.6 %; Hematocrit (blood only) 36.5 % (42-52); Hemoglobin 11.6 g/dL (14.0-18.0); Immature Granulocytes # (auto) 0.06 K/uL (0.00-0.02); Immature Granulocytes % (auto) 0.4 %; Lymphocytes # (auto) 2.18 K/uL (1.2-3.4); Lymphocytes % (auto) 13.7 %; Mean Corpuscular Hemoglobin 27.4 pg (25-34); Mean Corpuscular Hgb Conc 31.8 g/dL (32-36); Mean Corpuscular Volume 86.3 fL (80-100); Mean Platelet Volume 11.8 fL (7.4-10.4); Monocytes # (auto) 1.01 K/uL (0.11-0.59); Monocytes % (auto) 6.3 %; Neutrophils # (auto) 12.62 K/uL (1.4-6.5); Neutrophils % (auto) 78.9 %; Nucleated RBC # (auto) 0.09 K/uL (0-0); Nucleated RBC % (auto) 0.5 %; Platelet Count 130 K/uL (130-400); RDW Coefficient of Variation 15.5 % (11.5-14.5); RDW Standard Deviation 48.4 fL (36.4-46.3); Red Blood Count 4.23 M/uL (4.7-6.1); White Blood Count 15.97 K/uL (4.8-10.8)
[2019-03-30 07:14] LABS: INR 2.6 (0.9-1.1); Prothrombin Time 24.5 Seconds (9.0-12.0)
[2019-03-30 07:44] LABS: Albumin Level 2.5 gm/dl (3.4-5.0); BUN Creatinine Ratio 30.7 (10-20); Calcium 8.4 mg/dl (8.5-10.1); Creatinine Clr Calc Pharmacy 16.3 ml/min; Est GFR (African American) 19.6; Est GFR (Non-African American) 16.9; Magnesium 2.8 mg/dl (1.8-2.4)
[2019-03-30 07:49] LABS: Albumin Globulin Ratio 0.8 (0.9-2); Bilirubin,Total 1.6 mg/dl (0.2-1); Globulin 3.3 gm/dl (2.5-4.0); Phosphorus 6.5 mg/dl (2.5-4.9); Total Protein 5.8 gm/dl (6.4-8.2)
[2019-03-30 08:01] LABS: Fibrinogen 163 mg/dl (184-400); Partial Thromboplastin Ratio 1.5; Partial Thromboplastin Time 40.3 Seconds (21.0-31.0)
[2019-03-30 08:16] LABS: Echinocytes 2+
[2019-03-30] MEDS ORDERED: HALOPERIDOL 1 MG TAB PO ONE (08:24)
[2019-03-30] MEDS: INSULIN ASPART 100 UNITS/ML 3 ML PEN SC SCH ×4 (08:29→22:09)
[2019-03-30] MEDS ORDERED: SODIUM BICARBONATE 8.4% IV SCH (08:30)
[2019-03-30] MEDS ORDERED: DEXTROSE 5% IV SCH (08:30)
[2019-03-30] MEDS ORDERED: DEXTROSE 5% 1,000 ML IV SCH (09:00)
[2019-03-30] MEDS: CYANOCOBALAMIN 500 MCG TABLET (VITAMIN B-12) PO SCH (09:02)
[2019-03-30] MEDS: METOPROLOL TARTRATE 25 MG TAB PO SCH ×2 (09:03→20:13)
[2019-03-30] MEDS: SODIUM BICARBONATE 8.4% IV SCH ×3 (09:40→20:34)
[2019-03-30] MEDS: DEXTROSE 5% IV SCH ×3 (09:40→20:34)
--- NOTE | 2019-03-30 10:34 | XRay Report ---
XR chest 1V portable CLINICAL HISTORY: Shortness of breath COMPARISON STUDY: Chest radiograph March 27, 2019. FINDINGS: Small right and trace left pleural effusions are noted. There is no pneumothorax. Note is m cameron of moderate cardiomegaly. Note is made of pulmonary vascular congestion. Basilar opacities favor atelectasis. There is no consolidation to suggest pneumonia. IMPRESSION: 1. Pulmonary vascular congestion. 2. Small right and trace left pleural effusions. Electronically signed by: Александр Zavala M.D. 03/30/2019 10:33 AM
[2019-03-30 11:04] LABS: PCO2 VBG 47 mmHg (38-50); PO2 VBG 30 mmHg
[2019-03-30 11:05] LABS: Base Excess VBG 3.3 mEq/L; HCO3 VBG 29 mmol/L; Oxygen Saturation VBG < 60.0 %
--- NOTE | 2019-03-30 12:04 | Cardiology Progress Note ---
Date of Service March 30, 2019 Subjective Is confused today. He does not respond to questions appropriately. He has a one-on-one in the room and a family member with him. Results & Data Vital Signs (Past 12 Hours) Vital Signs Temp Pulse Pulse Resp BP Pulse Ox 03/30/19 11:04 36.5 C 72 18 126/72 92 03/30/19 07:21 36.8 C 100 H 20 108/69 96 03/30/19 03:34 125 H 24 93/51 L 89 L He is confused. HEENT: His carotid upstrokes are mildly reduced. He did not have carotid bruits. LUNGS: Clear to auscultation bilaterally. Faint crackles in the bases bilaterally HEART: Regular, but tachycardic. No appreciable murmurs, rubs or gallops. His PMI was nondisplaced. EXTREMITIES: No clubbing or cyanosis. Trace bilateral lower extremity edema PSYCHIATRIC: He appeared confused. IMPRESSION: 1. Wide complex tachycardia --most consistent with 2-1 atrial flutter 2. Left bundle branch block. 3. Hypovolemia, 4. urinary tract infection 5. confusion 6. elevated transaminases 7. acute renal failure and elevated lactate. 8. Biventricular heart failure with worsening RV function compared to LV function (LVEF 35% with an anterior wall motion abnormality) His echo is consistent with biventricular dysfunction. He has significant RV dysfunction and moderate LV dysfunction. 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 I have asked Dr. Mcbride to see the patient today. The best option of all the options available may be to consider starting him on amiodarone to try to slow his heart rate down, improve his diastolic filling., And ultimately improve his stroke volume. The challenge is we may worsen his underlying LFT abnormalities. My hope would be if we can increase forward flow his renal function and his hepatic function will improve. Digoxin is not a good option given his acute renal failure nor the other class III antiarrhythmics. He is not a candidate for a flutter ablation. The risk and benefit of performing a ROSA ISELA/cardioversion on somebody this ill and who cannot cooperate is very difficult and in all likelihood the risk outweighs the benefit. This was discussed with Dr. Mcbride as well as the primary service
--- NOTE | 2019-03-30 12:08 | Cardiology Progress Note ---
Date of Service March 30, 2019 Subjective He is confused. He cannot answer questions appropriately. He has a one-to-one at the bedside along with a family member Results & Data Vital Signs (Past 12 Hours) Vital Signs Temp Pulse Pulse Resp BP Pulse Ox 03/30/19 11:04 36.5 C 72 18 126/72 92 03/30/19 07:21 36.8 C 100 H 20 108/69 96 03/30/19 03:34 125 H 24 93/51 L 89 L He is confused. HEENT: His carotid upstrokes are mildly reduced. LUNGS: Clear to auscultation bilaterally. Rales in the bases bilaterally HEART: Regular, but tachycardic. No appreciable murmurs, rubs or gallops. EXTREMITIES: No clubbing or cyanosis. He has mild pitting edema to the mid tibia bilaterally. PSYCHIATRIC: He appeared confused. IMPRESSION: 1. Wide complex tachycardia --which appears to be 2-1 atrial flutter 2. Left bundle branch block. 3. Hypovolemia, 4. urinary tract infection 5. confusion 6. elevated transaminases 7. acute renal failure and elevated lactate. 8. Biventricular heart failure with severe RV dysfunction and moderate LV dysfunction with an LVEF of 35% and regional wall motion abnormality consistent with a prior LAD infarct His echo is consistent with biventricular dysfunction. He has significant RV dysfunction and moderate LV dysfunction. 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 I have asked Dr. Mcbride of electrophysiology to see the patient. I think the best of the least desirable options is to consider amiodarone to slow his heart rate down. This will improve his diastolic filling. And hopefully improve his stroke volume and forward flow to both his kidneys and his liver. The difficulty as we may worsen his already elevated liver enzymes in the short- term. Other options are even more limited given his renal dysfunction as he cannot receive digoxin nor other class III antiarrhythmics. He is not a good candidate for a flutter ablation. Given his confusion and overall poor health with significant comorbidities I think a ROSA ISELA cardioversion is is probably too high risk. In addition he would need to be on anticoagulation for a month after the procedure. All this was discussed with Dr. Mcbride as well as the primary service
[2019-03-30] MEDS: PIPERACILLIN/TAZOBACTAM 3.375 GM in DEXTROSE 5% 100 ML IV SCH ×2 (12:26→22:27)
[2019-03-30 14:27] LABS: Albumin Level 2.3 gm/dl (3.4-5.0); BUN Creatinine Ratio 32.3 (10-20); Calcium 7.6 mg/dl (8.5-10.1); Creatinine Clr Calc Pharmacy 17.1 ml/min; Est GFR (African American) 20.6; Est GFR (Non-African American) 17.8; Phosphorus 5.6 mg/dl (2.5-4.9); Potassium 4.4 mmol/L (3.5-5.1)
--- NOTE | 2019-03-30 15:14 | Hospitalist Progress Note ---
Date of Service March 30, 2019 Assessment & Plan (1) Bilateral ureteral calculi: CTAP on 03/28 noted for b/l stones, several obstructive. S/p bilateral stenting on 03/[address] England. - Urology following - Appreciate help - Urine culture from 03/28 was negative. Blood cultures from 03/27 has no growth to date. - Continue Zosyn for presumed UTI (2) Sepsis: Likely related to UTI/stones. qSOFA 2/3 (AMS & hypotension). - As above (3) Tachycardia: He is in sinus tach with LBBB vs. aflutter vs. atrial tach. Unclear how long this has been going on. - Reviewing more EKGs, this is more likely aflutter. - Dr. Mcbride consulted - May consider amiodarone. (4) DAKOTA (acute kidney injury): Creatinine elevated at 2.19 on admission, no baseline in system. - Cr up to 3.33 on 03/30 with mildly high potassium. - Nephrology consulted on 03/29 - Appreciate recs - Continue IV fluids (5) CHF (congestive heart failure): Chronic systolic CHF. Echo on 03/28 showed EF 30-35%. Dr. 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 - Received Lasix 40 mg IV in ED -> Hypotensive afterward - Seen by Dr. Garcia with thought that he is volume down. - Monitor volume status with IV fluids (6) Benign essential HTN: BP borderline hypotensive with him running 90/50 most of the day. - Hold lisinopril for DAKOTA - Giving beta-ulises for his tachycardia (7) History of left bundle branch block (LBBB): History per and records, no previous EKG to for me to review. - As above (8) Altered mental status: Increased confusion over the past week, seems likely related to sepsis. - As above (9) DM type 2 (diabetes mellitus, type 2): A1c was 7.6% on 03/28. - Holding metformin - Sliding scale insulin (10) Transaminitis: AST = 56, ALT = 115, alk phos = [address] a/p on 03/28 noted for cirrhotic appearing liver. - AST/ALT up to 350/250 on 03/29. (11) Anemia: Hemoglobin 11.9 on admission, stable over the last few days. - Monitor (12) Elevated TSH: TSH = 5.260, FT4 1.04 on admission. - Will defer while acutely ill. - Will need recheck in 4-6 weeks. (13) Enlarged prostate: This is been reported by the as patient was supposed to have biopsy completed several years ago due to an elevated PSA, patient refused. - May be contributing to his presenting DAKOTA - Outpatient follow up with urology (14) DVT prophylaxis: SCDs - Low DVT risk per admission calculator Subjective Completely confused at this time. Review of Systems Review of Systems: Unobtainable due to cognitive status Physical Exam Constitutional: + acute distress, + cachectic and + frail appearing Eyes: EOM intact bilaterally; no conjunctival abnormality ENMT: external ear and nose normal, oropharynx normal Neck: trachea midline, no thyromegaly normal visual inspection Respiratory: normal respiratory effort, lungs clear to auscultation no respiratory distress Cardiovascular: Rate/Rhythm: regular rhythm and + tachycardic Heart Sounds: normal S1 and normal S2 Vessels: no JVD Extremities: no edema Gastrointestinal (Abdomen): Inspection/Auscultation: abdomen normal to inspection; abdomen not distended Musculoskeletal: no cyanosis or clubbing, extremities motor strength 5/5 Skin: no rashes, warm and dry Neurologic: moves all extremities and awake Psychiatric: Orientation: + not alert, + not oriented to person and + uncooperative Results & Data Vital Signs (Past 12 Hours) Vital Signs Temp Pulse Pulse Resp BP Pulse Ox 03/30/19 11:04 36.5 C 72 18 126/72 92 03/30/19 07:21 36.8 C 100 H 20 108/69 96 03/30/19 03:34 125 H 24 93/51 L 89 L PG Care Time/CCT Total # of Minutes Spent Total Time Spent with Patient: Total time spent is greater than 50% in resident care coordinator rdination of care (as documented) at patient's floor/unit and/or counseling patient: (1) CHF (congestive heart failure) Heart failure chronicity: acute Heart failure type: systolic Qualified Code(s): I50.21 - Acute systolic (congestive) heart failure (2) Anemia Anemia type: unspecified type Qualified Code(s): D64.9 - Anemia, unspecified
--- NOTE | 2019-03-30 16:14 | Gastrointestinal Consultation ---
Date of Consultation March 30, 2019 Assessment & Plan (1) Transaminitis: rising INR, cirrhosis on CT, fatty liver Suspect patient has underlying liver disease perhaps from CORDOVA and now has ischemic liver from combination of sespis and CHF. Discussed only thing to do is expectant management and hope once CHF and sepsis improves the liver has enought reserve to recover. Recommend follow LFTS and PT daily. History of Present Illness Reason for Consultation: elevated LFTS, worsening INR Requesting Physician: DR Rashid Medeiros Attending Physician: Rashid Medeiros MD History of Present Illness CC No obtainable from patient, he is confused HPI History from chart and ex . Pt was not confused prior to this admit. He presented with shortness of breath. He was noted to be in CHF and also septic from UTI and hydronephrosis. He required ureteral stent placement. CT a/p showed pleural effusions, fatty liver, small ascites, possible cirrhosis. ROS unobtainable secondary to confusion SHx no ETOH per ex FHx unobtainable secondary to confuseion Allergies Allergy/AdvReac Type Severity Reaction Status Date / Time No Known Allergies Allergy Unverified 03/27/19 16:52 Home Medications Home Medications Medication Instructions Recorded Confirmed Type albuterol sulfate [Ventolin HFA] 2 puff INHALATION Q6H PRN 03/27/19 03/27/19 History cyanocobalamin (vitamin B-12) 1,000 mcg PO DAILY 03/27/19 03/27/19 History [Vitamin B-12] lisinopril 5 mg PO DAILY 03/27/19 03/27/19 History lutein 20 mg PO DAILY 03/27/19 03/27/19 History metformin 500 mg PO TID 03/27/19 03/27/19 History saw palmetto fruit 450 mg PO UD 03/27/19 03/27/19 History Patient History Medical History History of left bundle branch block (LBBB) Non-insulin dependent type 2 diabetes mellitus Surgical History Surgical history unknown Social History Preferred Language: Arabic Communication Ability: Impaired Beliefs That Will Affect Care: None Current Living Situation: Significant Other Other Information That Helps Us Care for You: No Feels Safe at Home: Yes Safety Concerns: Feels Safe At This Time Smoking Status: Former smoker Hx Alcohol Use: No Hx Substance Use: No Physical Exam Constitutional: WD/WN, vitals as above Eyes: PERRL, conjunctivae normal, anicteric sclerae ENMT: external ear and nose normal, oropharynx normal Neck: normal visual inspection and trachea midline Respiratory: normal respiratory effort and + respiratory distress Cardiovascular: no obvious murmur, Gastrointestinal (Abdomen): normal bowel sounds, soft, nontender, no hepatosplenomegaly Skin: normal turgor Neurologic: PERRL, EOMI, accommodation nl, no face palsy, no dysarthria Psychiatric: Insight: + poor insight Results & Data Vital Signs (Past 12 Hours) Vital Signs Temp Pulse Pulse Resp BP Pulse Ox 03/30/19 15:16 36.4 C L 75 18 77/50 L 98 03/30/19 11:04 36.5 C 72 18 126/72 92 03/30/19 07:21 36.8 C 100 H 20 108/69 96
[2019-03-30] MEDS ORDERED: AMIODARONE IV BOLUS / DRIP IV STA (17:42)
--- NOTE | 2019-03-30 17:42 | Cardiology Consultation ---
Date of Consultation March 30, 2019 Assessment & Plan (1) Tachycardia: I think the mechanism of this tachycardia and atrial flutter. A review of his telemetry reveals sustained high heart rates which not very much in rate. Some of the telemetry is unreliable as it will not always accurately record his heart rate. Reviewed his EKGs demonstrate significant artifact, but again, likely mechanism for his arrhythmia is atrial flutter. It seems he has had the tachycardia for several weeks by report. This may account for some of his reduced ventricular function. He certainly had an element of heart failure on examination at the time of admission. Whether this is entirely responsible for his decompensation is unclear. He has hepatic failure with reduce synthetic function, declining renal function and an element lactic acidosis. Although this could be accounted for by poor perfusion. In the setting of reduced LV systolic function his tachycardia likely compromises his overall perfusion. I think he would certainly do better if his heart rate were controlled or ideally he was returned to a sinus rhythm. His comorbidities and relative hypotension make treatment difficult. Certainly he is not a good candidate for diltiazem or metoprolol given his current hemodynamics. Would agree that digoxin or class 3 agents are a poor choice for rhythm control or rate control at this time. Despite the increased risk of stroke, I think we should make an effort to return him to sinus rhythm. He is certainly not a good candidate for systemic anticoagulation at this time given his liver dysfunction. I think the benefit of being back in a sinus rhythm at a weights the small risk of stroke in this setting. His condition appears to be declining and hypoperfusion could account for most of his problems. I think we will start an amiodarone infusion tonight. If this is not succ essfully cardiovert the patient he will be in a good position for electrical cardioversion tomorrow. We will need to consult the anesthesiology service. Do not think he represents a good candidate for transesophageal echocardiogram, nor would the results of the echocardiogram likely sway S otherwise as he appears to need a return to sinus rhythm at this point. History of Present Illness Reason for Consultation: Tachycardia Requesting Physician: Radha Attending Physician: Rashid Medeiros MD History of Present Illness The patient is a 78-year-old gentleman with a recent history of congestive heart failure and tachycardia was admitted to the [facility] for progressive symptoms of confusion, weakness, shortness of breath and development of peripheral edema. The patient is currently very confused and not communicative, his provided the entire history. Apparently the patient had been declining for a few weeks. On outpatient basis he was noted to have an elevated heart rate and evidence of reduced LV systolic function. He was advised to seek medical attention but refused. His states that he also developed lower extremity edema and eventually became short of breath and weak. His confusion also progressed over this time frame. According to his he is generally very active individual. He goes hunting frequently and performs manual activity without significant symptoms. She has had leading up to his current condition he did not report symptoms of dyspnea on a regular basis. Occasionally he will use an inhaler but this is quite rare. He does not generally have orthopnea or paroxysmal nocturnal dyspnea. He is not suffer from dizziness or lightheadedness. He has not been aware of any palpitations or elevated heart rates. His did endorse the presence of a left bundle branch block dating back to the . Allergies Allergy/AdvReac Type Severity Reaction Status Date / Time No Known Allergies Allergy Unverified 03/27/19 16:52 Home Medications Home Medications Medication Instructions Recorded Confirmed Type albuterol sulfate [Ventolin HFA] 2 puff INHALATION Q6H PRN 03/27/19 03/27/19 History cyanocobalamin (vitamin B-12) 1,000 mcg PO DAILY 03/27/19 03/27/19 History [Vitamin B-12] lisinopril 5 mg PO DAILY 03/27/19 03/27/19 History lutein 20 mg PO DAILY 03/27/19 03/27/19 History metformin 500 mg PO TID 03/27/19 03/27/19 History saw palmetto fruit 450 mg PO UD 03/27/19 03/27/19 History Patient History Medical History History of left bundle branch block (LBBB) Non-insulin dependent type 2 diabetes mellitus Surgical History Surgical history unknown Social History Preferred Language: Frisian Communication Ability: Impaired Beliefs That Will Affect Care: None Current Living Situation: Significant Other Other Information That Helps Us Care for You: No Feels Safe at Home: Yes Safety Concerns: Feels Safe At This Time Smoking Status: Former smoker Hx Alcohol Use: No Hx Substance Use: No Review of Systems Review of Systems: Unobtainable due to cognitive status Physical Exam Physical Exam: The patient was alert but his level of consciousness varied. He did not respond directly to questions or comments. He did verbalize comments on occasion that were nonsensical. HEENT: Sclerae are anicteric. Lungs: The patient could not cooperate with the exam. Cardiac: Tachycardia. No murmurs. Pulses: The patient has palpable radial pulses bilaterally that are equal in intensity Extremities: There is no cyanosis or clubbing. There is no edema. Skin: I did not appreciate any rashes on examination today. Results & Data Vital Signs (Past 12 Hours) Vital Signs Temp Pulse Pulse Resp BP Pulse Ox 03/30/19 15:16 36.4 C L 75 18 77/50 L 98 03/30/19 11:04 36.5 C 72 18 126/72 92 03/30/19 07:21 36.8 C 100 H 20 108/69 96 Laboratory Results Abnormal Lab Results 03/29/19 03/29/19 03/29/19 16:50 16:50 17:15 WBC RBC Hgb Hct MCV MCH MCHC RDW Std Deviation RDW Coeff of George Plt Count MPV Immature Gran % (Auto) Neut % (Auto) Lymph % (Auto) [place] % (Auto) Eos % (Auto) Baso % (Auto) Immature Gran # (Auto) Neut # (Auto) Lymph # (Auto) [place] # (Auto) Eos # (Auto) Baso # (Auto) Absolute Nucleated RBC Nucleated RBC % (auto) Echinocytes Peripher Smr Path Cons PT INR APTT PTT Ratio Fibrinogen 191 ABG pH ABG pCO2 ABG pO2 ABG HCO3 ABG O2 Saturation ABG Base Excess Aldo Test VBG pH VBG pCO2 VBG pO2 VBG HCO3 VBG O2 Saturation VBG Base Excess Barometric Pressure Oxygen Given Sodium Potassium Chloride Carbon Dioxide Anion Gap BUN Creatinine Est Cr Clr Drug Dosing Est GFR ( Amer) Est GFR (Non-Af Amer) BUN/Creatinine Ratio Glucose POC Glucose Lactate Calcium Phosphorus Magnesium Total Bilirubin AST ALT Alkaline Phosphatase Ammonia Lactate Dehydrogenase Total Protein Albumin Globulin Albumin/Globulin Ratio Urine Color Red Urine Appearance Cloudy A Urine pH 5.0 Ur Specific [place] 1.022 Urine Protein 3+ H Urine Glucose (UA) Negative Urine Ketones Negative Urine Blood 3+ H Urine Nitrite Negative Urine Bilirubin Negative Urine Urobilinogen Negative Ur Leukocyte Esterase 1+ H Urine WBC (Auto) >30 H Urine RBC (Auto) >30 H U Hyaline Cast (Auto) 1-5 U Epithel Cells (Auto) >30 H Urine Bacteria (Auto) Negative Ur Renal Epithelial Cell 0-5 Urine Yeast Not Reportable Ur Random Sodium 56 03/29/19 03/29/19 03/30/19 17:15 21:15 06:48 WBC RBC Hgb Hct MCV MCH MCHC RDW Std Deviation RDW Coeff of George Plt Count MPV Immature Gran % (Auto) Neut % (Auto) Lymph % (Auto) [place] % (Auto) Eos % (Auto) Baso % (Auto) Immature Gran # (Auto) Neut # (Auto) Lymph # (Auto) [place] # (Auto) Eos # (Auto) Baso # (Auto) Absolute Nucleated RBC Nucleated RBC % (auto) Echinocytes Peripher Smr Path Cons PT INR APTT PTT Ratio Fibrinogen ABG pH ABG pCO2 ABG pO2 ABG HCO3 ABG O2 Saturation ABG Base Excess [place] Test VBG pH VBG pCO2 VBG pO2 VBG HCO3 VBG O2 Saturation VBG Base Excess Barometric Pressure Oxygen Given Sodium 148 H Potassium 5.0 Chloride 114 H Carbon Dioxide 17 L Anion Gap 17.0 H BUN 102 H Creatinine 3.33 H D Est Cr Clr Drug Dosing 16.3 Est GFR ( Amer) 19.6 Est GFR (Non-Af Amer) 16.9 BUN/Creatinine Ratio 30.7 H Glucose 125 H POC Glucose 156 H Lactate 3.9 H* Calcium 8.4 L Phosphorus 6.5 H Magnesium 2.8 H Total Bilirubin 1.6 H AST 582 H ALT 375 H Alkaline Phosphatase 126 H Ammonia Lactate Dehydrogenase Total Protein 5.8 L Albumin 2.5 L Globulin 3.3 Albumin/Globulin Ratio 0.8 L Urine Color Urine Appearance Urine pH Ur Specific [place] Urine Protein Urine Glucose (UA) Urine Ketones Urine Blood Urine Nitrite Urine Bilirubin Urine Urobilinogen Ur Leukocyte Esterase Urine WBC (Auto) Urine RBC (Auto) U Hyaline Cast (Auto) U Epithel Cells (Auto) Urine Bacteria (Auto) Ur Renal Epithelial Cell Urine Yeast Ur Random Sodium 03/30/19 03/30/19 03/30/19 06:48 06:48 06:48 WBC 15.97 H RBC 4.23 L Hgb 11.6 L Hct 36.5 L MCV 86.3 MCH 27.4 MCHC 31.8 L RDW Std Deviation 48.4 H RDW Coeff of George 15.5 H Plt Count 130 MPV 11.8 H Immature Gran % (Auto) 0.4 Neut % (Auto) 78.9 Lymph % (Auto) 13.7 [place] % (Auto) 6.3 Eos % (Auto) 0.6 Baso % (Auto) 0.1 Immature Gran # (Auto) 0.06 H Neut # (Auto) 12.62 H Lymph # (Auto) 2.18 [place] # (Auto) 1.01 H Eos # (Auto) 0.09 Baso # (Auto) 0.01 Absolute Nucleated RBC 0.09 H Nucleated RBC % (auto) 0.5 Echinocytes 2+ Peripher Smr Path Cons PT 24.5 H INR 2.6 H APTT PTT Ratio Fibrinogen ABG pH ABG pCO2 ABG pO2 ABG HCO3 ABG O2 Saturation ABG Base Excess [place] Test VBG pH VBG pCO2 VBG pO2 VBG HCO3 VBG O2 Saturation VBG Base Excess Barometric Pressure Oxygen Given Sodium Potassium Chloride Carbon Dioxide Anion Gap BUN Creatinine Est Cr Clr Drug Dosing Est GFR ( Amer) Est GFR (Non-Af Amer) BUN/Creatinine Ratio Glucose POC Glucose Lactate Calcium Phosphorus Magnesium Total Bilirubin AST ALT Alkaline Phosphatase Ammonia Lactate Dehydrogenase 952 H Total Protein Albumin Globulin Albumin/Globulin Ratio Urine Color Urine Appearance Urine pH Ur Specific [place] Urine Protein Urine Glucose (UA) Urine Ketones Urine Blood Urine Nitrite Urine Bilirubin Urine Urobilinogen Ur Leukocyte Esterase Urine WBC (Auto) Urine RBC (Auto) U Hyaline Cast (Auto) U Epithel Cells (Auto) Urine Bacteria (Auto) Ur Renal Epithelial Cell Urine Yeast Ur Random Sodium 03/30/19 03/30/19 03/30/19 06:48 08:29 10:17 WBC RBC Hgb Hct MCV MCH MCHC RDW Std Deviation RDW Coeff of [place] Plt Count MPV Immature Gran % (Auto) Neut % (Auto) Lymph % (Auto) [place] % (Auto) Eos % (Auto) Baso % (Auto) Immature Gran # (Auto) Neut # (Auto) Lymph # (Auto) [place] # (Auto) Eos # (Auto) Baso # (Auto) Absolute Nucleated RBC Nucleated RBC % (auto) Echinocytes Peripher Smr Path Cons PT INR APTT 40.3 H PTT Ratio 1.5 Fibrinogen 163 L ABG pH Cancelled ABG pCO2 Cancelled ABG pO2 Cancelled ABG HCO3 Cancelled ABG O2 Saturation Cancelled ABG Base Excess Cancelled Aldo Test Cancelled VBG pH VBG pCO2 VBG pO2 VBG HCO3 VBG O2 Saturation VBG Base Excess Barometric Pressure Cancelled Oxygen Given Cancelled Sodium Potassium Chloride Carbon Dioxide Anion Gap BUN Creatinine Est Cr Clr Drug Dosing Est GFR ( Amer) Est GFR (Non-Af Amer) BUN/Creatinine Ratio Glucose POC Glucose 128 H Lactate Calcium Phosphorus Magnesium Total Bilirubin AST ALT Alkaline Phosphatase Ammonia Lactate Dehydrogenase Total Protein Albumin Globulin Albumin/Globulin Ratio Urine Color Urine Appearance Urine pH Ur Specific [place] Urine Protein Urine Glucose (UA) Urine Ketones Urine Blood Urine Nitrite Urine Bilirubin Urine Urobilinogen Ur Leukocyte Esterase Urine WBC (Auto) Urine RBC (Auto) U Hyaline Cast (Auto) U Epithel Cells (Auto) Urine Bacteria (Auto) Ur Renal Epithelial Cell Urine Yeast Ur Random Sodium 03/30/19 03/30/19 03/30/19 10:17 10:47 10:47 WBC RBC Hgb Hct MCV MCH MCHC RDW Std Deviation RDW Coeff of [place] Plt Count MPV Immature Gran % (Auto) Neut % (Auto) Lymph % (Auto) [place] % (Auto) Eos % (Auto) Baso % (Auto) Immature Gran # (Auto) Neut # (Auto) Lymph # (Auto) [place] # (Auto) Eos # (Auto) Baso # (Auto) Absolute Nucleated RBC Nucleated RBC % (auto) Echinocytes Peripher Smr Path Cons PT INR APTT PTT Ratio Fibrinogen ABG pH ABG pCO2 ABG pO2 ABG HCO3 ABG O2 Saturation ABG Base Excess Aldo Test VBG pH 7.40 VBG pCO2 47 VBG pO2 30 VBG HCO3 29 VBG O2 Saturation < 60.0 VBG Base Excess 3.3 Barometric Pressure Oxygen Given Sodium Potassium Chloride Carbon Dioxide Anion Gap BUN Creatinine Est Cr Clr Drug Dosing Est GFR ( Amer) Est GFR (Non-Af Amer) BUN/Creatinine Ratio Glucose POC Glucose Lactate 5.2 H* Calcium Phosphorus Magnesium Total Bilirubin AST ALT Alkaline Phosphatase Ammonia 20.0 Lactate Dehydrogenase Total Protein Albumin Globulin Albumin/Globulin Ratio Urine Color Urine Appearance Urine pH Ur Specific [place] Urine Protein Urine Glucose (UA) Urine Ketones Urine Blood Urine Nitrite Urine Bilirubin Urine Urobilinogen Ur Leukocyte Esterase Urine WBC (Auto) Urine RBC (Auto) U Hyaline Cast (Auto) U Epithel Cells (Auto) Urine Bacteria (Auto) Ur Renal Epithelial Cell Urine Yeast Ur Random Sodium 03/30/19 03/30/19 03/30/19 11:29 13:48 16:31 WBC RBC Hgb Hct MCV MCH MCHC RDW Std Deviation RDW Coeff of [place] Plt Count MPV Immature Gran % (Auto) Neut % (Auto) Lymph % (Auto) [place] % (Auto) Eos % (Auto) Baso % (Auto) Immature Gran # (Auto) Neut # (Auto) Lymph # (Auto) [place] # (Auto) Eos # (Auto) Baso # (Auto) Absolute Nucleated RBC Nucleated RBC % (auto) Echinocytes Peripher Smr Path Cons PT INR APTT PTT Ratio Fibrinogen ABG pH ABG pCO2 ABG pO2 ABG HCO3 ABG O2 Saturation ABG Base Excess [place] Test VBG pH VBG pCO2 VBG pO2 VBG HCO3 VBG O2 Saturation VBG Base Excess Barometric Pressure Oxygen Given Sodium 146 H Potassium 4.4 Chloride 114 H Carbon Dioxide 20 L Anion Gap 12.0 H BUN 103 H Creatinine 3.19 H Est Cr Clr Drug Dosing 17.1 Est GFR ( Amer) 20.6 Est GFR (Non-Af Amer) 17.8 BUN/Creatinine Ratio 32.3 H Glucose 201 H POC Glucose 168 H 209 H Lactate Calcium 7.6 L Phosphorus 5.6 H Magnesium Total Bilirubin AST ALT Alkaline Phosphatase Ammonia Lactate Dehydrogenase Total Protein Albumin 2.3 L Globulin Albumin/Globulin Ratio Urine Color Urine Appearance Urine pH Ur Specific [place] Urine Protein Urine Glucose (UA) Urine Ketones Urine Blood Urine Nitrite Urine Bilirubin Urine Urobilinogen Ur Leukocyte Esterase Urine WBC (Auto) Urine RBC (Auto) U Hyaline Cast (Auto) U Epithel Cells (Auto) Urine Bacteria (Auto) Ur Renal Epithelial Cell Urine Yeast Ur Random Sodium Diagnostic Findings echocardiogram obtained on 03/28/2019 revealed reduced LV systolic function with an ejection fraction 30 35 percent. Right ventricular function was also reduced. There were regional wall motion abnormalities. Moderate mitral regurgitation. ECG Additional Comments: Atrial flutter with left bundle branch block PG Care Time/CCT Total # of Minutes Spent Total Time Spent with Patient: Total time spent is greater than 50% in coordination of care (as documented) at patient's floor/unit and/or counseling patient:
--- NOTE | 2019-03-30 17:52 | Nephrology Progress Note ---
Date of Service March 30, 2019 Assessment & Plan (1) DAKOTA (acute kidney injury): Miky is a 78-year-old male who presented with evidence of sepsis and mental status changes. He is to have found to be in atrial flutter with an elevated heart rate evidence of decompensated congestive heart failure. He was volume overloaded on presentation. Echocardiogram demonstrates systolic dysfunction with a left ventricular ejection fraction of 30-35% complicated by severe anterior hypokinesis. Patient also has some notable RV dysfunction. His PA systolic pressures were 40-45. This is all in the setting of renal insufficiency. It is unclear what the patient's baseline kidney function is. His creatinine on presentation was 2.2 mg/dL. Creatinine now has risen to and stabilized slightly at 3. Unfortunately the patient remains hemodynamically unstable with persistent lactic acidosis. He has evidence of poor perfusion consistently. Thankfully does not have severe electrolyte abnormalities necessitating emergent dialysis. In the patient's current condition on not sure he would tolerate intermittent hemodialysis at this time. Patient's urine output has been acceptable. IV fluids were switched to D5W with 75 mEq of sodium bicarbonate at a rate of 150 mL/hour this morning. Free water deficit is improving but persist. Will continue fluids overnight. Metabolic profile will continue to be monitored q.12 hours. Subjective The patient was seen and evaluated this morning. IV fluids were changed. Unfortunately, he was significantly confused and not able to participate in discussion. 1:1 caregiver remained at the bedside. The patient's ex- was also at the bedside. Agitation had improved with a dose of Haldol. Cardiology consultation was reviewed. Review of Systems Review of Systems: Unobtainable due to cognitive status Physical Exam Constitutional: + ill appearing, + thin and + frail appearing; not edematous Eyes: no scleral abnormality and no corneal abnormality ENMT: Mouth: + dry oral mucous membranes; no oral mucosal abnormality Neck: normal visual inspection and trachea midline Respiratory: normal respiratory effort Auscultation: lungs clear to auscultation bilaterally Cardiovascular: Rate/Rhythm: + tachycardic Heart Sounds: normal S1 and normal S2 Vessels: + JVD Extremities: no edema Gastrointestinal (Abdomen): Inspection/Auscultation: + abdomen distended Percussion/Palpation: abdomen soft; abdomen nontender Musculoskeletal: Extremities: no cyanosis and no clubbing Skin: normal turgor; no lesions Neurologic: Motor/Sensory: no tremor and no asterixis Psychiatric: Orientation: alert and oriented x 3 Results & Data Vital Signs (Past 12 Hours) Vital Signs Temp Pulse Pulse Resp BP Pulse Ox 03/30/19 15:16 36.4 C L 75 18 77/50 L 98 03/30/19 11:04 36.5 C 72 18 126/72 92 03/30/19 07:21 36.8 C 100 H 20 108/69 96 Laboratory Results Laboratory Results - last 24 hr 03/29/19 03/29/19 03/29/19 16:50 16:50 17:15 WBC RBC Hgb Hct MCV MCH MCHC RDW Std Deviation RDW Coeff of George Plt Count MPV Immature Gran % (Auto) Neut % (Auto) Lymph % (Auto) Gillespie % (Auto) Eos % (Auto) Baso % (Auto) Immature Gran # (Auto) Neut # (Auto) Lymph # (Auto) Gillespie # (Auto) Eos # (Auto) Baso # (Auto) Absolute Nucleated RBC Nucleated RBC % (auto) Echinocytes Peripher Smr Path Cons PT INR APTT PTT Ratio Fibrinogen 191 ABG pH ABG pCO2 ABG pO2 ABG HCO3 ABG O2 Saturation ABG Base Excess Aldo Test VBG pH VBG pCO2 VBG pO2 VBG HCO3 VBG O2 Saturation VBG Base Excess Barometric Pressure Oxygen Given Sodium Potassium Chloride Carbon Dioxide Anion Gap BUN Creatinine Est Cr Clr Drug Dosing Est GFR ( Amer) Est GFR (Non-Af Amer) BUN/Creatinine Ratio Glucose POC Glucose Lactate Calcium Phosphorus Magnesium Total Bilirubin AST ALT Alkaline Phosphatase Ammonia Lactate Dehydrogenase Total Protein Albumin Globulin Albumin/Globulin Ratio Urine Color Red Urine Appearance Cloudy A Urine pH 5.0 Ur Specific Union 1.022 Urine Protein 3+ H Urine Glucose (UA) Negative Urine Ketones Negative Urine Blood 3+ H Urine Nitrite Negative Urine Bilirubin Negative Urine Urobilinogen Negative Ur Leukocyte Esterase 1+ H Urine WBC (Auto) >30 H Urine RBC (Auto) >30 H U Hyaline Cast (Auto) 1-5 U Epithel Cells (Auto) >30 H Urine Bacteria (Auto) Negative Ur Renal Epithelial Cell 0-5 Urine Yeast Not Reportable Ur Random Sodium 56 03/29/19 03/29/19 03/30/19 17:15 21:15 06:48 WBC RBC Hgb Hct MCV MCH MCHC RDW Std Deviation RDW Coeff of George Plt Count MPV Immature Gran % (Auto) Neut % (Auto) Lymph % (Auto) Gillespie % (Auto) Eos % (Auto) Baso % (Auto) Immature Gran # (Auto) Neut # (Auto) Lymph # (Auto) Gillespie # (Auto) Eos # (Auto) Baso # (Auto) Absolute Nucleated RBC Nucleated RBC % (auto) Echinocytes Peripher Smr Path Cons PT INR APTT PTT Ratio Fibrinogen ABG pH ABG pCO2 ABG pO2 ABG HCO3 ABG O2 Saturation ABG Base Excess Aldo Test VBG pH VBG pCO2 VBG pO2 VBG HCO3 VBG O2 Saturation VBG Base Excess Barometric Pressure Oxygen Given Sodium 148 H Potassium 5.0 Chloride 114 H Carbon Dioxide 17 L Anion Gap 17.0 H BUN 102 H Creatinine 3.33 H D Est Cr Clr Drug Dosing 16.3 Est GFR ( Amer) 19.6 Est GFR (Non-Af Amer) 16.9 BUN/Creatinine Ratio 30.7 H Glucose 125 H POC Glucose 156 H Lactate 3.9 H* Calcium 8.4 L Phosphorus 6.5 H Magnesium 2.8 H Total Bilirubin 1.6 H AST 582 H ALT 375 H Alkaline Phosphatase 126 H Ammonia Lactate Dehydrogenase Total Protein 5.8 L Albumin 2.5 L Globulin 3.3 Albumin/Globulin Ratio 0.8 L Urine Color Urine Appearance Urine pH Ur Specific Union Urine Protein Urine Glucose (UA) Urine Ketones Urine Blood Urine Nitrite Urine Bilirubin Urine Urobilinogen Ur Leukocyte Esterase Urine WBC (Auto) Urine RBC (Auto) U Hyaline Cast (Auto) U Epithel Cells (Auto) Urine Bacteria (Auto) Ur Renal Epithelial Cell Urine Yeast Ur Random Sodium 03/30/19 03/30/19 03/30/19 06:48 06:48 06:48 WBC 15.97 H RBC 4.23 L Hgb 11.6 L Hct 36.5 L MCV 86.3 MCH 27.4 MCHC 31.8 L RDW Std Deviation 48.4 H RDW Coeff of George 15.5 H Plt Count 130 MPV 11.8 H Immature Gran % (Auto) 0.4 Neut % (Auto) 78.9 Lymph % (Auto) 13.7 Gillespie % (Auto) 6.3 Eos % (Auto) 0.6 Baso % (Auto) 0.1 Immature Gran # (Auto) 0.06 H Neut # (Auto) 12.62 H Lymph # (Auto) 2.18 Gillespie # (Auto) 1.01 H Eos # (Auto) 0.09 Baso # (Auto) 0.01 Absolute Nucleated RBC 0.09 H Nucleated RBC % (auto) 0.5 Echinocytes 2+ Peripher Smr Path Cons PT 24.5 H INR 2.6 H APTT PTT Ratio Fibrinogen ABG pH ABG pCO2 ABG pO2 ABG HCO3 ABG O2 Saturation ABG Base Excess Aldo Test VBG pH VBG pCO2 VBG pO2 VBG HCO3 VBG O2 Saturation VBG Base Excess Barometric Pressure Oxygen Given Sodium Potassium Chloride Carbon Dioxide Anion Gap BUN Creatinine Est Cr Clr Drug Dosing Est GFR ( Amer) Est GFR (Non-Af Amer) BUN/Creatinine Ratio Glucose POC Glucose Lactate Calcium Phosphorus Magnesium Total Bilirubin AST ALT Alkaline Phosphatase Ammonia Lactate Dehydrogenase 952 H Total Protein Albumin Globulin Albumin/Globulin Ratio Urine Color Urine Appearance Urine pH Ur Specific Union Urine Protein Urine Glucose (UA) Urine Ketones Urine Blood Urine Nitrite Urine Bilirubin Urine Urobilinogen Ur Leukocyte Esterase Urine WBC (Auto) Urine RBC (Auto) U Hyaline Cast (Auto) U Epithel Cells (Auto) Urine Bacteria (Auto) Ur Renal Epithelial Cell Urine Yeast Ur Random Sodium 03/30/19 03/30/19 03/30/19 06:48 08:29 10:17 WBC RBC Hgb Hct MCV MCH MCHC RDW Std Deviation RDW Coeff of George Plt Count MPV Immature Gran % (Auto) Neut % (Auto) Lymph % (Auto) Gillespie % (Auto) Eos % (Auto) Baso % (Auto) Immature Gran # (Auto) Neut # (Auto) Lymph # (Auto) Gillespie # (Auto) Eos # (Auto) Baso # (Auto) Absolute Nucleated RBC Nucleated RBC % (auto) Echinocytes Peripher Smr Path Cons PT INR APTT 40.3 H PTT Ratio 1.5 Fibrinogen 163 L ABG pH Cancelled ABG pCO2 Cancelled ABG pO2 Cancelled ABG HCO3 Cancelled ABG O2 Saturation Cancelled ABG Base Excess Cancelled Aldo Test Cancelled VBG pH VBG pCO2 VBG pO2 VBG HCO3 VBG O2 Saturation VBG Base Excess Barometric Pressure Cancelled Oxygen Given Cancelled Sodium Potassium Chloride Carbon Dioxide Anion Gap BUN Creatinine Est Cr Clr Drug Dosing Est GFR ( Amer) Est GFR (Non-Af Amer) BUN/Creatinine Ratio Glucose POC Glucose 128 H Lactate Calcium Phosphorus Magnesium Total Bilirubin AST ALT Alkaline Phosphatase Ammonia Lactate Dehydrogenase Total Protein Albumin Globulin Albumin/Globulin Ratio Urine Color Urine Appearance Urine pH Ur Specific Union Urine Protein Urine Glucose (UA) Urine Ketones Urine Blood Urine Nitrite Urine Bilirubin Urine Urobilinogen Ur Leukocyte Esterase Urine WBC (Auto) Urine RBC (Auto) U Hyaline Cast (Auto) U Epithel Cells (Auto) Urine Bacteria (Auto) Ur Renal Epithelial Cell Urine Yeast Ur Random Sodium 03/30/19 03/30/19 03/30/19 10:17 10:47 10:47 WBC RBC Hgb Hct MCV MCH MCHC RDW Std Deviation RDW Coeff of George Plt Count MPV Immature Gran % (Auto) Neut % (Auto) Lymph % (Auto) Gillespie % (Auto) Eos % (Auto) Baso % (Auto) Immature Gran # (Auto) Neut # (Auto) Lymph # (Auto) Gillespie # (Auto) Eos # (Auto) Baso # (Auto) Absolute Nucleated RBC Nucleated RBC % (auto) Echinocytes Peripher Smr Path Cons PT INR APTT PTT Ratio Fibrinogen ABG pH ABG pCO2 ABG pO2 ABG HCO3 ABG O2 Saturation ABG Base Excess Aldo Test VBG pH 7.40 VBG pCO2 47 VBG pO2 30 VBG HCO3 29 VBG O2 Saturation < 60.0 VBG Base Excess 3.3 Barometric Pressure Oxygen Given Sodium Potassium Chloride Carbon Dioxide Anion Gap BUN Creatinine Est Cr Clr Drug Dosing Est GFR ( Amer) Est GFR (Non-Af Amer) BUN/Creatinine Ratio Glucose POC Glucose Lactate 5.2 H* Calcium Phosphorus Magnesium Total Bilirubin AST ALT Alkaline Phosphatase Ammonia 20.0 Lactate Dehydrogenase Total Protein Albumin Globulin Albumin/Globulin Ratio Urine Color Urine Appearance Urine pH Ur Specific Union Urine Protein Urine Glucose (UA) Urine Ketones Urine Blood Urine Nitrite Urine Bilirubin Urine Urobilinogen Ur Leukocyte Esterase Urine WBC (Auto) Urine RBC (Auto) U Hyaline Cast (Auto) U Epithel Cells (Auto) Urine Bacteria (Auto) Ur Renal Epithelial Cell Urine Yeast Ur Random Sodium 03/30/19 03/30/19 03/30/19 11:29 13:48 16:31 WBC RBC Hgb Hct MCV MCH MCHC RDW Std Deviation RDW Coeff of George Plt Count MPV Immature Gran % (Auto) Neut % (Auto) Lymph % (Auto) Gillespie % (Auto) Eos % (Auto) Baso % (Auto) Immature Gran # (Auto) Neut # (Auto) Lymph # (Auto) Gillespie # (Auto) Eos # (Auto) Baso # (Auto) Absolute Nucleated RBC Nucleated RBC % (auto) Echinocytes Peripher Smr Path Cons PT INR APTT PTT Ratio Fibrinogen ABG pH ABG pCO2 ABG pO2 ABG HCO3 ABG O2 Saturation ABG Base Excess Aldo Test VBG pH VBG pCO2 VBG pO2 VBG HCO3 VBG O2 Saturation VBG Base Excess Barometric Pressure Oxygen Given Sodium 146 H Potassium 4.4 Chloride 114 H Carbon Dioxide 20 L Anion Gap 12.0 H BUN 103 H Creatinine 3.19 H Est Cr Clr Drug Dosing 17.1 Est GFR ( Amer) 20.6 Est GFR (Non-Af Amer) 17.8 BUN/Creatinine Ratio 32.3 H Glucose 201 H POC Glucose 168 H 209 H Lactate Calcium 7.6 L Phosphorus 5.6 H Magnesium Total Bilirubin AST ALT Alkaline Phosphatase Ammonia Lactate Dehydrogenase Total Protein Albumin 2.3 L Globulin Albumin/Globulin Ratio Urine Color Urine Appearance Urine pH Ur Specific Union Urine Protein Urine Glucose (UA) Urine Ketones Urine Blood Urine Nitrite Urine Bilirubin Urine Urobilinogen Ur Leukocyte Esterase Urine WBC (Auto) Urine RBC (Auto) U Hyaline Cast (Auto) U Epithel Cells (Auto) Urine Bacteria (Auto) Ur Renal Epithelial Cell Urine Yeast Ur Random Sodium PG Care Time/CCT Total # of Minutes Spent Total Time Spent with Patient: Total time spent is greater than 50% in coordination of care (as documented) at patient's floor/unit and/or counseling patient:
[2019-03-30] MEDS ORDERED: AMIODARONE / D5W 150 MG/100 ML BAG IV ONE (18:00)
[2019-03-30] MEDS ORDERED: HALOPERIDOL 1 MG TAB PO PRN (18:21)
[2019-03-30 20:00] VITALS: TEMP 99
[2019-03-30] MEDS: AMIODARONE / D5W 360 MG/200 ML BAG IV SCH (20:37)
[2019-03-31] MEDS ORDERED: LORazepam 2 MG/4 ML VIAL ONE (00:13)
[2019-03-31] MEDS ORDERED: LORazepam 1 MG/2 ML VIAL IV PRN (00:13)
[2019-03-31] MEDS ORDERED: LORazepam 1 MG/2 ML VIAL IV STA (00:14)
[2019-03-31] MEDS ORDERED: AMIODARONE / D5W 360 MG/200 ML BAG IV SCH (00:15)
[2019-03-31] MEDS: AMIODARONE / D5W 360 MG/200 ML BAG IV SCH (00:15)
[2019-03-31] MEDS: ALBUMIN 25% 50 ML IV SCH ×2 (00:35→01:07)
[2019-03-31] MEDS ORDERED: SODIUM CHLORIDE 0.9% 1000ML 500 ML IV ONE (01:00)
[2019-03-31 01:04] LABS: Albumin Level 2.5 gm/dl (3.4-5.0); Calcium 7.4 mg/dl (8.5-10.1); Creatinine Clr Calc Pharmacy 15.3 ml/min; Est GFR (Non-African American) 15.6; Potassium 4.6 mmol/L (3.5-5.1)
[2019-03-31 01:07] LABS: Albumin Globulin Ratio 0.8 (0.9-2); Bilirubin,Total 1.6 mg/dl (0.2-1); Globulin 3.3 gm/dl (2.5-4.0); Total Protein 5.8 gm/dl (6.4-8.2)
[2019-03-31] MEDS ORDERED: methylPREDNISolone 125 MG in SYRINGE 0 ML IV STA (01:08)
[2019-03-31 01:20] LABS: Basophils # (auto) 0.01 K/uL (0-0.2); Basophils % (auto) 0.1 %; Echinocytes 1+; Eosinophils # (auto) 0.07 K/uL (0-0.5); Eosinophils % (auto) 0.5 %; Hematocrit (blood only) 37.4 % (42-52); Hemoglobin 11.6 g/dL (14.0-18.0); Immature Granulocytes # (auto) 0.04 K/uL (0.00-0.02); Immature Granulocytes % (auto) 0.3 %; Lymphocytes # (auto) 2.14 K/uL (1.2-3.4); Lymphocytes % (auto) 15.3 %; Mean Corpuscular Hemoglobin 26.8 pg (25-34); Mean Corpuscular Volume 86.4 fL (80-100); Mean Platelet Volume 12.5 fL (7.4-10.4); Monocytes # (auto) 0.78 K/uL (0.11-0.59); Monocytes % (auto) 5.6 %; Neutrophils # (auto) 10.98 K/uL (1.4-6.5); Neutrophils % (auto) 78.2 %; Nucleated RBC # (auto) 0.09 K/uL (0-0); Nucleated RBC % (auto) 0.6 %; Ovalocytes 1+; Platelet Count 113 K/uL (130-400); Platelet Estimate Decreased (Normal); RDW Coefficient of Variation 15.5 % (11.5-14.5); RDW Standard Deviation 48.9 fL (36.4-46.3); Red Blood Count 4.33 M/uL (4.7-6.1); White Blood Count 14.02 K/uL (4.8-10.8)
[2019-03-31] MEDS ORDERED: NOREPINEPHRINE BIT INJ 8 MG in DEXTROSE 5% 500 ML IV PRN (01:34)
[2019-03-31 02:03] LABS: iSTAT Allen Test Pass; iSTAT Arterial Blood Gas HCO3 18 meg/L (19-24); iSTAT Arterial Blood Gas pCO2 55 mmHg (35-46); iSTAT Arterial Blood Gas pH 7.11 (7.35-7.45); iSTAT Arterial Blood Gas pO2 35 mmHg (80-95); iSTAT Carbon Dioxide 19 mEq/l (24-31); iSTAT Site L Radial
[2019-03-31] MEDS ORDERED: fentaNYL citrate 100 MCG/2 ML VIAL IV PRN (02:17)
[2019-03-31] MEDS ORDERED: fentaNYL DRIP 1,250 MCG/250 ML BAG IV SCH (02:20)
[2019-03-31] MEDS ORDERED: MoRPHine SULF/NSS 100 MG/100 ML BAG IV PRN (02:24)
[2019-03-31] MEDS ORDERED: MoRPHine SULFATE 2 MG/ML CARP IV STA (02:25)
--- NOTE | 2019-03-31 02:29 | Progress Note ---
Date of Service March 31, 2019 Assessment & Plan (1) Tachycardia: Notified by nursing that patient was unresponsive. Examination was consistent with a seizure. The patient was given 1mg IV ativan, and loaded with 1000mg of IV Keppra. STAT labs were ordered, including a CBC, CMP, and ammonia, and a stat CT scan of his brain as well. Approximately 30 minutes later, his blood pressure dropped to the 60s systolic. He was awake and moving all extremities, but unable to respond to questions or follow commands. He was ordered 25% albumin x 2 bags, and a 1L normal saline bolus. His pressures failed to improve, and he received a 125mg dose of IV solumedrol as well. I called his ex- and his son to discuss care moving forward as he is a DNR/DNI. His son stated that he would like for me to move his father to the ICU and start pressors. I asked his son to come in to the hospital. Mr. Hays was moved down to the ICU and care was discussed with SHELLI Wallace. He was started on levophed to improve his blood pressure. POC ABG revealed a pH of 7.11, PCO2 of 55.3, PO2 of 35 and HCO3 of 17.6. He was subsequently started on BiPAP. Once his BP improved to 90s systolic, he was sent for his CT brain. During this time, his family arrived, including his son. A discussion was had regarding his care, and his family elected to transition to comfort measures only. His IV medications were stopped, he was placed on an oxymask, and given fentanyl and morphine for comfort. Leidy Solorzano, PGY-3 Overnight call resident Results & Data Vital Signs (Past 12 Hours) Vital Signs Temp Pulse Pulse Resp BP BP Pulse Ox 03/30/19 19:44 37.2 C 103 H 28 H 88/64 L 100 03/30/19 18:26 89/34 L 03/30/19 15:16 36.4 C L 75 18 77/50 L 98 Resident Activity Tracking Resident Involvement: [employer] Consultant Coverage Note Care Provided: Adult Hospital Medicine
--- NOTE | 2019-03-31 02:29 | Critical Care Consultation ---
Date of Consultation March 31, 2019 Assessment & Plan (1) Multiple organ system failure: At this time family has decided to make patient comfortable and no longer pursue medical treatments of disease. See HPI. Goals of care shifted to provide patient with comfort. Medications, labs, BiPAP discontinued. Morphine drip started. Code status now comfort care. CRITICAL CARE TIME - I have personally spent 40 minutes of critical care time in the direct management of this patient. This is a life/limb threatening event. This includes time spent evaluating patient, direct bedside care, chart review, placing orders, interpretation of diagnostic studies, discussion with consultants, pat ient, and family members, as well as other required patient management activities. This time is exclusive of all separately billable procedures, and teaching time and separate from and in addition to any other critical care service time. (2) Sepsis: (3) Altered mental status: (4) DAKOTA (acute kidney injury): (5) CHF (congestive heart failure): (6) Transaminitis: Supervising Physician Co-Signing Physician Notes Patient seen and examined. Electronic medical record extensively reviewed. Discussed with at bedside and with MARIA overnight. 78-year-old male with multiorgan system dysfunction with sepsis lactic acidosis and progressive renal insufficiency. He decompensated last night was brought to the ICU for presumed seizure activity. He was found to be severely acidotic with both respiratory and metabolic components. He was initially placed on BiPAP. DNR status was confirmed and once family arrived they requested transition to full comfort care. The patient is currently on a morphine infusion and comfortable with the at the bedside. We will transfer the patient back to the floor under the care of the hospitalist and sign off once he leaves the ICU. Comfort care measures per the hospitalist service History of Present Illness Attending Physician: Rashid Medeiros MD History of Present Illness Mr. Hays is a 78-year-old male that was being treated for A. fib with RVR, DAKOTA, sepsis, bilateral obstructing distal ureteral stones who had bilateral ureteral stent placements placed on 03/28. His kidney function did not improve post stent placement and he continued to be septic. This a.m. the patient was hypotensive and had a witnessed seizure. He was given Keppra and 1 mg Ativan and bolused. He has had altered mental status throughout this admission thought to be contributed to infection and presumed UTI. He was transferred to the ICU for worsening of his condition. Of note the patient is DNR/DNI, and family was contacted by the resident and at the time wanted to pursue aggressive medical treatment. On arrival to the ICU, patient was found to be hypotensive and hypoxic. ABG revealed that the patient had mixed respiratory and metabolic acidosis. He was placed on BiPAP and more epinephrine drip was started. The patient was then taken for CT head. The patient's family soon arrived and I spoke with his sons. I explained the patient's condition thoroughly and they were in understanding. Further through our conversation they revealed that the patient would not want to pursue aggressive treatments at this time. They did not want to continue antibiotics, BiPAP, or vasopressors. They want to make the patient comfortable at this time. The process of comfort care was explained thoroughly to the family and they were all in agreement that the patient will be made comfort care status at this time. BiPAP and medications were discontinued and the patient was placed on a morphine drip. Allergies Allergy/AdvReac Type Severity Reaction Status Date / Time No Known Allergies Allergy Unverified 03/27/19 16:52 Home Medications Home Medications Medication Instructions Recorded Confirmed Type albuterol sulfate [Ventolin HFA] 2 puff INHALATION Q6H PRN 03/27/19 03/27/19 History cyanocobalamin (vitamin B-12) 1,000 mcg PO DAILY 03/27/19 03/27/19 History [Vitamin B-12] lisinopril 5 mg PO DAILY 03/27/19 03/27/19 History lutein 20 mg PO DAILY 03/27/19 03/27/19 History metformin 500 mg PO TID 03/27/19 03/27/19 History saw palmetto fruit 450 mg PO UD 03/27/19 03/27/19 History Patient History Medical History History of left bundle branch block (LBBB) Non-insulin dependent type 2 diabetes mellitus Surgical History Surgical history unknown Social History Preferred Language: [place] Leonean Communication Ability: Impaired Beliefs That Will Affect Care: None Current Living Situation: Significant Other Other Information That Helps Us Care for You: No Feels Safe at Home: Yes Safety Concerns: Feels Safe At This Time Smoking Status: Former smoker Hx Alcohol Use: No Hx Substance Use: No Review of Systems Review of Systems: Unobtainable due to reduced consciousness Physical Exam Eyes: PERRL, conjunctivae normal, anicteric sclerae ENMT: external ear and nose normal, oropharynx normal Respiratory: + labored breathing and symmetric chest movement Auscultation: lungs clear to auscultation bilaterally Cardiovascular: Rate/Rhythm: + irregularly irregular Vessels: no JVD E xtremities: + abnormal capillary refill Gastrointestinal (Abdomen): normal bowel sounds, soft, nontender, no hepatosplenomegaly Neurologic: + obtunded Speech / Cognition: + abnormal cognition Results & Data Vital Signs (Past 12 Hours) Vital Signs Temp Pulse Pulse Resp BP BP Pulse Ox 03/30/19 19:44 37.2 C 103 H 28 H 88/64 L 100 03/30/19 18:26 89/34 L 03/30/19 15:16 36.4 C L 75 18 77/50 L 98 Coding Level of Care Code Critical Care 1st 30-74 mins Diagnoses Multiple organ system failure Sepsis A41.9 Altered mental status R41.82 DAKOTA (acute kidney injury) N17.9 CHF (congestive heart failure) I50.21 Heart failure chronicity: acute Heart failure type: systolic Transaminitis R74.0 (1) CHF (congestive heart failure) Heart failure chronicity: acute Heart failure type: systolic Qualified Code(s): I50.21 - Acute systolic (congestive) heart failure
[2019-03-31] MEDS ORDERED: Nursing to Pharmacy Communication ONE (03:00)
[2019-03-31 03:27] VITALS: BP 96/64; O2SAT 69
--- NOTE | 2019-03-31 06:41 | CT Scan Report ---
CT OF THE HEAD WITHOUT CONTRAST CLINICAL HISTORY: Altered mental status. COMPARISON STUDY: Head CT March 27, 2019. CT DOSE: 687.98 mGy.cm TECHNIQUE: Helical axial images of the head were obtained without IV contrast. Automated exposure con trol was utilized for the study. A dose lowering technique was utilized adhering to the principles o f ALARA. FINDINGS: No acute intracranial hemorrhage, midline shift or mass effect is present. Mild ventricular dilatation is due to atrophy. The basilar cisterns are patent. No extra-axial collections are presen t. There are no findings to suggest acute dural sinus thrombosis or acute territorial infarct. No sig nificant calvarial abnormalities are present. Visualized portions of the sinuses and mastoid air cell s are clear. This study is mildly compromised by motion artifact. Mild white matter hypodensity sugge sts small vessel disease. IMPRESSION: No acute intracranial findings. Electronically signed by: Александр Zavala M.D. 03/31/2019 6:40 AM
[2019-03-31] MEDS: INSULIN ASPART 100 UNITS/ML 3 ML PEN SC SCH ×2 (07:50→11:40)
--- NOTE | 2019-03-31 09:38 | Hospitalist Progress Note ---
Date of Service March 31, 2019 Assessment & Plan (1) Comfort measures only status: Overnight had a seizure and became hypotensive. Now on comfort measures only. - Reduced vitals; no labs, comfort meds. - Palliative care consult (2) Bilateral ureteral calculi: CTAP on 03/28 noted for b/l stones, several obstructive. S/p bilateral stenting on 03/[address] England. - Urology following - Appreciate help - Urine culture from 03/28 was negative. Blood cultures from 03/27 has no growth to date. - Continue Zosyn for presumed UTI (3) Sepsis: Likely related to UTI/stones. qSOFA 2/3 (AMS & hypotension). - As above (4) Tachycardia: Likely aflutter; now bradycardic. (5) DAKOTA (acute kidney injury): Creatinine elevated at 2.19 on admission, no baseline in system. - Cr up to 3.33 on 03/30 with mildly high potassium. - Nephrology consulted on 03/29 - Appreciate recs - No longer checking labs. (6) CHF (congestive heart failure): Chronic systolic CHF. Echo on 03/28 showed EF 30-35%. Dr. 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 - Received Lasix 40 mg IV in ED -> Hypotensive afterward - Seen by Dr. Garcia with thought that he is volume down. - Monitor volume status with IV fluids (7) Benign essential HTN: BP borderline hypotensive with him running 90/50 most of the day. - Hold lisinopril for DAKOTA - Giving beta-ulises for his tachycardia (8) History of left bundle branch block (LBBB): History per and records, no previous EKG to for me to review. - As above (9) Altered mental status: Increased confusion over the past week, seems likely related to sepsis. - As above (10) DM type 2 (diabetes mellitus, type 2): A1c was 7.6% on 03/28. - Holding metformin - Sliding scale insulin (11) Transaminitis: AST = 56, ALT = 115, alk phos = [address] a/p on 03/28 noted for cirrhotic appearing liver. - AST/ALT up to 350/250 on 03/29. (12) Anemia: Hemoglobin 11.9 on admission, stable over the last few days. - Monitor (13) Elevated TSH: TSH = 5.260, FT4 1.04 on admission. - Will defer while acutely ill. - Will need recheck in 4-6 weeks. (14) Enlarged prostate: This is been reported by the as patient was supposed to have biopsy completed several years ago due to an elevated PSA, patient refused. - May be contributing to his presenting DAKOTA - Outpatient follow up with urology (15) DVT prophylaxis: SCDs - Low DVT risk per admission calculator Subjective Unresponsive. Review of Systems Review of Systems: Unobtainable due to cognitive status Physical Exam Constitutional: + acute distress, + cachectic and + frail appearing Eyes: no conjunctival abnormality Neck: trachea midline, no thyromegaly normal visual inspection Respiratory: no respiratory distress Cardiovascular: Rate/Rhythm: regular rhythm; not tachycardic Heart Sounds: normal S1 and normal S2 Vessels: no JVD Extremities: no edema Gastrointestinal (Abdomen): Inspection/Auscultation: abdomen normal to inspection; abdomen not distended Skin: no rashes, warm and dry Neurologic: + does not move all extremities and + not awake Psychiatric: Orientation: + not alert Results & Data Vital Signs (Past 12 Hours) Vital Signs Pulse Resp BP Pulse Ox 03/31/19 09:24 78 03/31/19 09:00 78 9 L 03/31/19 08:00 57 L 4 L 03/31/19 07:00 46 L 13 03/31/19 06:00 54 L 16 03/31/19 05:00 55 L 21 03/31/19 04:00 68 24 03/31/19 03:20 87 22 03/31/19 03:10 86 21 03/31/19 03:00 87 22 03/31/19 02:50 93 H 21 03/31/19 02:40 99 H 23 03/31/19 02:30 107 H 23 03/31/19 02:20 102 H 21 03/31/19 02:18 103 H 26 H 03/31/19 02:00 105 H 23 69 L 03/31/19 01:50 103 H 24 03/31/19 01:45 106 H 24 96/64 L PG Care Time/CCT Total # of Minutes Spent Total Time Spent with Patient: Total time spent is greater than 50% in coordination of care (as documented) at patient's floor/unit and/or counseling patient: (1) CHF (congestive heart failure) Heart failure chronicity: acute Heart failure type: systolic Qualified Code(s): I50.21 - Acute systolic (congestive) heart failure (2) Anemia Anemia type: unspecified type Qualified Code(s): D64.9 - Anemia, unspecified
[2019-03-31 10:30] VITALS: PULSE 55
--- NOTE | 2019-03-31 12:32 | Nephrology Progress Note ---
Date of Service March 31, 2019 Assessment & Plan (1) DAKOTA (acute kidney injury): Patient significantly decompensated overnight. Has now transitioned to comfort care. Nephrology will sign off. Please call with any questions or concerns. Subjective Significant overnight events noted. Plan of care reviewed with Dr. Medeiros this morning. Patient is transitioned from the ICU to the medical floor for comfort measures. Review of Systems Review of Systems: Unobtainable due to cognitive status Physical Exam Constitutional: + ill appearing, + thin and + frail appearing; not edematous ENMT: Mouth: + dry oral mucous membranes Cardiovascular: Extremities: no edema Musculoskeletal: Extremities: + cyanosis Neurologic: + obtunded Psychiatric: Orientation: + not oriented to person Results & Data Vital Signs (Past 12 Hours) Vital Signs Pulse Resp BP Pulse Ox 03/31/19 10:00 55 L 10 L 03/31/19 09:24 78 03/31/19 09:00 78 9 L 03/31/19 08:00 57 L 4 L 03/31/19 07:00 46 L 13 03/31/19 06:00 54 L 16 03/31/19 05:00 55 L 21 03/31/19 04:00 68 24 03/31/19 03:20 87 22 03/31/19 03:10 86 21 03/31/19 03:00 87 22 03/31/19 02:50 93 H 21 03/31/19 02:40 99 H 23 03/31/19 02:30 107 H 23 03/31/19 02:20 102 H 21 03/31/19 02:18 103 H 26 H 03/31/19 02:00 105 H 23 69 L 03/31/19 01:50 103 H 24 03/31/19 01:45 106 H 24 96/64 L Laboratory Results Laboratory Results - last 24 hr 03/30/19 03/30/19 03/30/19 13:48 16:31 21:09 WBC RBC Hgb Hct MCV MCH MCHC RDW Std Deviation RDW Coeff of George Plt Count MPV Immature Gran % (Auto) Neut % (Auto) Lymph % (Auto) [place] % (Auto) Eos % (Auto) Baso % (Auto) Immature Gran # (Auto) Neut # (Auto) Lymph # (Auto) [place] # (Auto) Eos # (Auto) Baso # (Auto) Absolute Nucleated RBC Nucleated RBC % (auto) Platelet Estimate Ovalocytes Echinocytes Sample Site POC pH POC pCO2 POC pO2 POC HCO3 POC Total CO2 POC Base Excess POC ABG O2 Sat Aldo Test O2 Delivery Device Sodium 146 H Potassium 4.4 Chloride 114 H Carbon Dioxide 20 L Anion Gap 12.0 H BUN 103 H Creatinine 3.19 H Est Cr Clr Drug Dosing 17.1 Est GFR ( Amer) 20.6 Est GFR (Non-Af Amer) 17.8 BUN/Creatinine Ratio 32.3 H Glucose 201 H POC Glucose 209 H 123 H Calcium 7.6 L Phosphorus 5.6 H Total Bilirubin AST ALT Alkaline Phosphatase Ammonia Total Protein Albumin 2.3 L Globulin Albumin/Globulin Ratio Nasal Screen MRSA (PCR) 03/30/19 03/31/19 03/31/19 23:08 00:39 00:39 WBC 14.02 H RBC 4.33 L Hgb 11.6 L Hct 37.4 L MCV 86.4 MCH 26.8 MCHC 31.0 L RDW Std Deviation 48.9 H RDW Coeff of George 15.5 H Plt Count 113 L MPV 12.5 H Immature Gran % (Auto) 0.3 Neut % (Auto) 78.2 Lymph % (Auto) 15.3 [place] % (Auto) 5.6 Eos % (Auto) 0.5 Baso % (Auto) 0.1 Immature Gran # (Auto) 0.04 H Neut # (Auto) 10.98 H Lymph # (Auto) 2.14 [place] # (Auto) 0.78 H Eos # (Auto) 0.07 Baso # (Auto) 0.01 Absolute Nucleated RBC 0.09 H Nucleated RBC % (auto) 0.6 Platelet Estimate Decreased L Ovalocytes 1+ Echinocytes 1+ Sample Site POC pH POC pCO2 POC pO2 POC HCO3 POC Total CO2 POC Base Excess POC ABG O2 Sat Aldo Test O2 Delivery Device Sodium 142 Potassium 4.6 Chloride 105 Carbon Dioxide 19 L Anion Gap 18.0 H BUN 100 H Creatinine 3.56 H D Est Cr Clr Drug Dosing 15.3 Est GFR ( Amer) 18.0 Est GFR (Non-Af Amer) 15.6 BUN/Creatinine Ratio 28.0 H Glucose 173 H POC Glucose 130 H Calcium 7.4 L Phosphorus Total Bilirubin 1.6 H AST 697 H ALT 460 H Alkaline Phosphatase 123 H Ammonia Total Protein 5.8 L Albumin 2.5 L Globulin 3.3 Albumin/Globulin Ratio 0.8 L Nasal Screen MRSA (PCR) 03/31/19 03/31/19 03/31/19 00:39 01:30 01:48 WBC RBC Hgb Hct MCV MCH MCHC RDW Std Deviation RDW Coeff of George Plt Count MPV Immature Gran % (Auto) Neut % (Auto) Lymph % (Auto) [place] % (Auto) Eos % (Auto) Baso % (Auto) Immature Gran # (Auto) Neut # (Auto) Lymph # (Auto) [place] # (Auto) Eos # (Auto) Baso # (Auto) Absolute Nucleated RBC Nucleated RBC % (auto) Platelet Estimate Ovalocytes Echinocytes Sample Site L Radial POC pH 7.11 L* POC pCO2 55 H POC pO2 35 L POC HCO3 18 L POC Total CO2 19 L POC Base Excess -12.0 L POC ABG O2 Sat 47.0 L Aldo Test Pass O2 Delivery Device Other Sodium Potassium Chloride Carbon Dioxide Anion Gap BUN Creatinine Est Cr Clr Drug Dosing Est GFR ( Amer) Est GFR (Non-Af Amer) BUN/Creatinine Ratio Glucose POC Glucose Calcium Phosphorus Total Bilirubin AST ALT Alkaline Phosphatase Ammonia 18.0 Total Protein Albumin Globulin Albumin/Globulin Ratio Nasal Screen MRSA (PCR) Negative PG Care Time/CCT Total # of Minutes Spent Total Time Spent with Patient: Total time spent is greater than 50% in coordination of care (as documented) at patient's floor/unit and/or counseling patient:
--- NOTE | 2019-03-31 17:44 | Palliative Care Consultation ---
Date of Consultation March 31, 2019 Assessment & Plan (1) Comfort measures only status: Patient is a 78-year-old male with a past medical history significant for diabetes, BPH, hypertension and CHF who had been having increased lower extremity edema and increased shortness of breath for approximately 5 weeks prior to admission. Patient reluctant to seek medical care-had been seen by his PCP and started on some Lasix which she took for approximately 1 week. Patient lives with his ex-. Over the past week patient's edema, shortness of breath and increased, patient had refused coming to the emergency room despite the calling EMS. Patient's dog had several months ago-he and his went and looked at a litter of puppies. Patient's told him that if he wanted a puppy he needed to come to the hospital and get in better shape to take care of the puppy. These were the conditions on which patient agreed to come to the emergency room. In the emergency room patient was found to have an elevated white count, increased lactic acid and hypotension. He was found to have bilateral ureteral obstruction due to calculi. He was fluid resuscitated and started on IV antibiotics. He underwent cystoscopy on 03/28 with bilateral stent placement. Patient's white count continued to trend upward, his creatinine was also trending upward as well as his LFTs. Patient was seen by cardiology, GI and nephrology. Last evening patient was noted to have seizure- like activity-with severe hypotension. Patient was transferred to the ICU and placed on pressors. Patient with multisystem organ failure-family decided on comfort care. Patient was transferred to the fourth floor and placed on a morphine drip. Patient seen and examined with his ex-, Joselito and his son Brooks at bedside. Patient's other son, Javi, had returned home to get some rest after being in the hospital most of the night. Patient appears comfortable, appears to be nearing end-of-life. Patient's ex- is a prior hospice nurse-and aware of end-of-life signs and symptoms. Patient had been restless earlier today-is now calm on a morphine drip. -CODE STATUS DNR-Comfort Care -Multiorgan failure-now on comfort care, comfortable on morphine drip -Sepsis-was treated with IV antibiotics as well as fluid support. Did require pressors prior to being made comfort care. Urine culture, blood cultures negative -Bilateral ureteral stones with obstruction-status post bilateral stents on 03/28 -CHF-EF 30 to 35%-now on comfort care. Will continue to follow and provide support to patient's family as patient approaches end of life. (2) Multiple organ system failure: (3) Sepsis: (4) Bilateral ureteral calculi: (5) CHF (congestive heart failure): Heart failure chronicity: acute Heart failure type: systolic Qualified Code(s): I50.21 - Acute systolic (congestive) heart failure History of Present Illness Reason for Consultation: Support family with end-of-life care Requesting Physician: Dr. Rashid Medeiros Attending Physician: Rashid Medeiros MD History of Present Illness Patient is a 78-year-old male with a past medical history significant for diabet es, BPH, hypertension and CHF who had been having increased lower extremity edema and increased shortness of breath for approximately 5 weeks prior to admission. Patient reluctant to seek medical care-had been seen by his PCP and started on some Lasix which she took for approximately 1 week. Patient lives with his ex-. Over the past week patient's edema, shortness of breath and increased, patient had refused coming to the emergency room despite the calling EMS. Patient's dog had several months ago-he and his went and looked at a litter of puppies. Patient's told him that if he wanted a puppy he needed to come to the hospital and get in better shape to take care of the puppy. These were the conditions on which patient agreed to come to the emergency room. In the emergency room patient was found to have an elevated white count, increased lactic acid and hypotension. He was found to have bilateral ureteral obstruction due to calculi. He was fluid resuscitated and started on IV antibiotics. He underwent cystoscopy on 03/28 with bilateral stent placement. Patient's white count continued to trend upward, his creatinine was also trending upward as well as his LFTs. Patient was seen by cardiology, GI and nephrology. Last evening patient was noted to have seizure- like activity-with severe hypotension. Patient was transferred to the ICU and placed on pressors. Patient with multisystem organ failure-family decided on comfort care. Patient was transferred to the fourth floor and placed on a morphine drip. Patient seen and examined with his ex-, Joselito and his son Brooks at bedside. Patient's other son, Javi, had returned home to get some rest after being in the hospital most of the night. Patient appears comfortable, appears to be nearing end-of-life. Patient's ex- is a prior hospice nurse-and aware of end-of-life signs and symptoms. Patient had been restless earlier today-is now calm on a morphine drip. Allergies Allergy/AdvReac Type Severity Reaction Status Date / Time No Known Allergies Allergy Unverified 03/27/19 16:52 Home Medications Home Medications Medication Instructions Recorded Confirmed Type albuterol sulfate [Ventolin HFA] 2 puff INHALATION Q6H PRN 03/27/19 03/27/19 History cyanocobalamin (vitamin B-12) 1,000 mcg PO DAILY 03/27/19 03/27/19 History [Vitamin B-12] lisinopril 5 mg PO DAILY 03/27/19 03/27/19 History lutein 20 mg PO DAILY 03/27/19 03/27/19 History metformin 500 mg PO TID 03/27/19 03/27/19 History saw palmetto fruit 450 mg PO UD 03/27/19 03/27/19 History Patient History Medical History History of left bundle branch block (LBBB) Non-insulin dependent type 2 diabetes mellitus Surgical History Surgical history unknown Social History Preferred Language: Frisian Communication Ability: Impaired Beliefs That Will Affect Care: None Current Living Situation: Significant Other Other Information That Helps Us Care for You: No Feels Safe at Home: Yes Safety Concerns: Feels Safe At This Time Smoking Status: Former smoker Hx Alcohol Use: No Hx Substance Use: No Review of Systems Review of Systems: Unobtainable due to reduced consciousness Physical Exam Physical Exam: PE: Patient unresponsive to voice or touch, appears calm and comfortable Neck: Hyperextended Respiratory: Decreased respiratory rate, unlabored, on O2 CV: Bradycardic Abdomen: Not distended Extremities: Early mottling right foot Neuro: Unresponsive to voice or touch Skin: Forehead, shoulders and extremities cool to touch Results & Data Vital Signs (Past 12 Hours) Vital Signs Pulse Resp 03/31/19 10:00 55 L 10 L 03/31/19 09:24 78 03/31/19 09:00 78 9 L 03/31/19 08:00 57 L 4 L 03/31/19 07:00 46 L 13 03/31/19 06:00 54 L 16 PG Care Time/CCT Total # of Minutes Spent Total Time Spent with Patient: Total time spent is greater than 50% in behavioral therapy coordinator rdination of care (as documented) at patient's floor/unit and/or counseling patient: Time Spent Attending Total time spent 70 minutes with greater than 50% of the time at bedside evaluating patient's comfort level as well as discussing end-of-life issues at length with patient's ex- and son at bedside.
[2019-03-31] MEDS ORDERED: MoRPHine SULF/NSS 250 MG/250 ML BTL IV PRN (20:00)
--- NOTE | 2019-04-01 11:07 | Palliative Care Progress Note ---
Date of Service April 01, 2019 Assessment & Plan (1) Comfort measures only status: -Patient is obtunded and agonally breathing. Mottling present. No urine output. -Ex-, son and female family member present at bedside. -Morphine gtt infusing at 6mg/hr. -Patient's ex- was hospice nurse for many years. She is well-versed in end of life care. Family all feels that patient is comfortable and peaceful. -Please contact palliative care with any further needs. (2) Multiple organ system failure: (3) Sepsis: (4) Bilateral ureteral calculi: (5) CHF (congestive heart failure): Subjective Patient is obtunded and agonally breathing. Mottling present. No urine output. Ex-, son and female family member present at bedside. Morphine gtt infusing. Review of Systems Review of Systems: Unobtainable due to reduced consciousness Physical Exam Constitutional: + cachectic and + frail appearing Respiratory: normal respiratory effort, lungs clear to auscultation Cardiovascular: Rate/Rhythm: + irregularly irregular Extremities: no edema Gastrointestinal (Abdomen): Inspection/Auscultation: abdomen not distended Percussion/Palpation: abdomen soft Musculoskeletal: Extremities: + cyanosis Skin: + mottling (BL knees and toes) Neurologic: + obtunded Time Spent Midlevel 25 minutes with >50% of the time spent at bedside with patient and family discussing end of life care. (1) CHF (congestive heart failure) Heart failure chronicity: acute Heart failure type: systolic Qualified Code(s): I50.21 - Acute systolic (congestive) heart failure
--- NOTE | 2019-04-01 14:25 | Death Summary ---
Date of Service April 01, 2019 Pronouncement Note Date and Time of Date of : 04/01/19 Time of : 12:10 PCOD Preliminary cause of : Heart failure Contributing Factors (1) Comfort measures only status: (2) Multiple organ system failure: (3) Sepsis: (4) Bilateral ureteral calculi: (5) CHF (congestive heart failure): Additional Data Confirmation of : no pulse, no respirations, no heart sounds and pupils fixed and dilated Family: at bedside Attending/PCP notified?: Yes Attending physician: Rashid Medeiros MD Was code activated?: No Autopsy requested?: No drivers license examiner notified?: No Organ bank notified?: No Advance directives: Yes
== END 2019-04-01 13:59 | disposition expired | DRG 853 ==
LOC: ED 15:45 → SUATTDRO 18:33 → 2W 18:33 → 2S 20:44 → 1E 03-31 01:16 → 4W 03-31 09:34